=== PATIENT | female | born 1995 | race Caucasian/White ===

== ENCOUNTER → 2017-02-06 | Outpatient (CLI) | payer OTHER ==
[~2017-02-06] MED LIST: PRENTAB26 PO
== END | disposition home or self-care (01) ==
LOC: C.CPL 11:53
PROVIDERS: ATTEND Physician Assistant
DX: Z34.80 Encounter for supervision of other normal pregnancy, unspecified trimester (principal); Z82.79 Family history of other congenital malformations, deformations and chromosomal abnormalities

== ENCOUNTER 2017-05-06 23:03 | Inpatient (IN) | payer OTHER ==
[~2017-05-06] VITALS: Ht 172.7 cm; Wt 68.5 kg
[2017-05-06] MEDS ORDERED: LACTATED RINGER'S 1000ML 1,000 ML IV PRN (23:48)
[2017-05-06] MEDS ORDERED: LACTATED RINGER'S 1000ML 1,000 ML IV SCH (23:48)
[2017-05-07] MEDS ORDERED: PENICILLIN G POTASSIUM IV 3 MU in DEXTROSE 5% 100ML 100 ML IV PRN ×2
[2017-05-07] MEDS ORDERED: PENICILLIN G POTASSIUM IV 6 MU in DEXTROSE 5% 250ML 250 ML IV ONE ×2
[2017-05-07] MEDS ORDERED: BUPIVACAINE 0.25% 30 ML VIAL ONE (00:06)
[2017-05-07] MEDS ORDERED: FENTANYL CITRATE INJ 50 MCG/1 ML 2 ML VIAL ONE (00:07)
[2017-05-07] MEDS ORDERED: EpHEDrine SULFATE INJ 50 MG/ML AMP ONE (00:07)
[2017-05-07] MEDS ORDERED: FENTANYL 2MCG/ML ROPIV 1.25MG/ML 100ML BAG EPI ONE (00:08)
[2017-05-07 00:12] LABS: HEMATOCRIT 37.7 % (37-47); MEAN CELL VOLUME 90.2 fL (80-100); MEAN CORPUSCULAR HEMOGLOBIN 31.1 pg (25-34); MEAN PLATELET VOLUME 10.1 fL (7.4-10.4); PLATELET COUNT 191 K/uL (130-400); RED CELL DISTRIBUTION WIDTH CV 13.6 % (11.5-14.5); RED CELL DISTRIBUTION WIDTH SD 44.9 fL (36.4-46.3)
[2017-05-07 00:16] LABS: MEAN CORPUSCULAR HGB CONC 34.5 g/dl (32-36)
[2017-05-07] MEDS ORDERED: LACTATED RINGER'S 1000ML 500 ML IV PRN (00:58)
[2017-05-07] MEDS ORDERED: NALOXONE HCL INJ 1 MG in SODIUM CHLORIDE 0.9% 1000ML 1,000 ML IV PRN (00:58)
[2017-05-07] MEDS ORDERED: EpHEDrine SULFATE INJ 50 MG/ML AMP IV PRN (01:00)
[2017-05-07] MEDS ORDERED: NALBUPHINE HCL INJ 10 MG/ML AMP IV PRN (01:00)
[2017-05-07] MEDS ORDERED: FENTANYL 2MCG/ML ROPIV 1.25MG/ML 100ML BAG EPI PRN (01:00)
[2017-05-07] MEDS ORDERED: NALOXONE HCL INJ 0.4 MG/1 ML VIAL/CARP IV PRN (01:00)
[2017-05-07] MEDS ORDERED: DiphenhydrAMINE HCL 50 MG/ML VIAL IV PRN (01:00)
[2017-05-07 01:10] VITALS: Ht 172.7 cm; Wt 68.5 kg
[2017-05-07] MEDS ORDERED: LEVO25TA PO (02:44)
[2017-05-07] MEDS ORDERED: OXYTOCIN 30 UNITS/500ML NSS IV ONE (03:35)
[2017-05-07] MEDS ORDERED: ACETAMINOPHEN 325 MG TAB PO PRN (04:15)
[2017-05-07] MEDS ORDERED: LANOLIN OINT EXT PRN (04:15)
[2017-05-07] MEDS ORDERED: HYDROCORTISONE ACETATE 25 MG SUPP PR PRN (04:15)
[2017-05-07] MEDS ORDERED: BENZOCAINE 20% AER SPR 82.5 GM CAN EXT PRN (04:15)
[2017-05-07] MEDS ORDERED: OXYCODONE/ACETAMINOPHEN 5-325 TAB PO PRN (04:15)
[2017-05-07] MEDS ORDERED: OXYTOCIN 30 UNITS/500ML NSS IV PRN (04:15)
[2017-05-07] MEDS ORDERED: SUPERCREAM 0.870 % 15GM JAR EXT PRN (04:15)
--- NOTE | 2017-05-07 04:26 | DELIVERY SUMMARY ---
DATE OF OPERATION: 05/07/2017 TIME: 03:44 a.m. TIME OF DELIVERY OF PLACENTA: 03:58 a.m. DETAILS OF DELIVERY: The patient was found to be fully dilated and desired to push. She pushed through 2 contractions and delivered the head and the baby altogether. Baby's mouth and nose were suctioned. The cord was clamped x2 and cut, it was a 3-vessel cord. Cord blood was obtained. Vagina and perineum were checked for lacerations. There were labial lacerations on both sides and a first degree vaginal laceration. They were repaired with 3-0 Vicryl in a running locked fashion. Excellent hemostasis was achieved. Placenta was found to be in the vagina and delivered complete and intact. Uterus was explored and found to be empty. Lower segment was cleared off all clots and debris. Fundus was firm. EBL was 100 ml. Mom and baby tolerated the procedure well. At the end of the procedure, sponge, needle and instrument counts were x2. Baby was a viable female infant. Apgars 9/9. Weight is 2435. No complications happened and I was present during the whole procedure. I attest to the content of the Intraoperative Record and any orders documented therein. Any exceptions are noted below. MTDD
[2017-05-07 07:15] VITALS: BP 120/67; PULSE 79; TEMP 37
--- NOTE | 2017-05-07 07:32 | Anesthesia Procedure Note ---
Anesthesia Epidural Removal Nt Date & Time May 07, 2017 at 07:32 Vital Signs Pain Intensity: 0.0 Notes Mental Status: alert / awake / arousable, participated in evaluation Nausea / Vomiting: adequately controlled Pain: adequately controlled Airway Patency, RR, SpO2: stable & adequate BP & HR: stable & adequate Hydration State: stable & adequate Neuraxial Anesthesia: was administered Anesthetic Complications: no major complications apparent, pt satisfied with anesthetic care Epidural: removed without complications, with tip intact
[2017-05-07] MEDS: DOCUSATE SODIUM 100 MG CAP PO SCH ×2 (08:31→20:17)
[2017-05-07] MEDS: PRENATAL VITAMIN TAB PO SCH (08:31)
[2017-05-07] MEDS: FERROUS SULFATE 325 MG TAB PO SCH (08:31)
[2017-05-07 12:08] VITALS: BP 113/64; PULSE 75; TEMP 37.2
[2017-05-07 15:15] VITALS: BP 129/76; PULSE 81; TEMP 37.1
[2017-05-07 23:40] VITALS: BP 115/68; PULSE 76; TEMP 36.5; O2SAT 97
[2017-05-08] MEDS: IBUPROFEN 600 MG TAB PO PRN ×2 (00:25→23:39)
[2017-05-08 04:15] VITALS: BP 114/66; PULSE 76; TEMP 36.9; O2SAT 98
[2017-05-08] MEDS: PRENATAL VITAMIN TAB PO SCH (08:06)
[2017-05-08] MEDS: LEVOTHYROXINE 25 MCG TAB PO SCH (08:06)
[2017-05-08] MEDS: FERROUS SULFATE 325 MG TAB PO SCH (08:06)
[2017-05-08] MEDS: DOCUSATE SODIUM 100 MG CAP PO SCH ×2 (08:06→20:45)
[2017-05-08 08:24] LABS: HEMATOCRIT 34.7 % (37-47); HEMOGLOBIN 12.1 g/dL (12.0-16.0)
[2017-05-08] MEDS ORDERED: MEASLES, MUMPS & RUBELLA VIRUS VIAL SQ. ONE (09:00)
[2017-05-08] MEDS ORDERED: DIPHTHERIA/TETANUS/PERTUSSIS 0.5 ML SYR/VIAL IM. ONE (09:00)
--- NOTE | 2017-05-08 09:02 | OB/GYN Progress Note ---
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 Patient is seen and examined. She feels well, no complaints. Ambulating without dizziness Voiding without difficulty Tolerating regular diet with out N&V Bleeding is minimal No fever/ chills/ CP/ SOB/ N&V/ Leg pain Bottle feeding without problems Date Time Temp Pulse Resp B/P (MAP) Pulse Ox O2 Delivery O2 Flow Rate FiO2 05/08/17 04:15 36.9 76 16 114/66 (82) 98 Room Air 05/07/17 23:40 97 Room Air 05/07/17 23:40 36.5 76 20 115/68 (84) 97 Room Air 05/07/17 15:15 37.1 81 16 129/76 (93) Room Air 05/07/17 15:15 Room Air 05/07/17 12:08 37.2 75 20 113/64 (80) Room Air Last 24 Hours Test 05/08/17 07:40 Hemoglobin 12.1 g/dL Hematocrit 34.7 % PE: General: Alert, orientedx3, NAD Abd: soft, NT, fundus firm, below Umbilicus Perineum intact, Lochia rubra minimal Ext; NT, no edema AP: 21 yo s/p , ppd# 1 VSS Afebrile doing well Continue routine care All questions were answered D/C home tomorrow
[2017-05-08 09:10] VITALS: BP 119/76; PULSE 69; TEMP 36.5
[2017-05-08 16:18] VITALS: BP 117/70; PULSE 69; TEMP 36.7; O2SAT 98
[2017-05-08] MEDS ORDERED: BISACODYL 5 MG TABEC PO SCH (20:00)
[2017-05-08 23:30] VITALS: BP 121/74; PULSE 73; TEMP 37; O2SAT 96; O2SAT 99
[2017-05-09] MEDS ORDERED: BISACODYL 10 MG SUPP PR PRN (07:00)
[2017-05-09] MEDS: LEVOTHYROXINE 25 MCG TAB PO SCH (07:43)
[2017-05-09 07:47] LABS: HEMATOCRIT 36.6 % (37-47); HEMOGLOBIN 12.4 g/dL (12.0-16.0); MEAN CELL VOLUME 90.6 fL (80-100); MEAN CORPUSCULAR HEMOGLOBIN 30.7 pg (25-34); MEAN CORPUSCULAR HGB CONC 33.9 g/dl (32-36); MEAN PLATELET VOLUME 9.7 fL (7.4-10.4); PLATELET COUNT 200 K/uL (130-400); RED CELL DISTRIBUTION WIDTH CV 13.6 % (11.5-14.5); RED CELL DISTRIBUTION WIDTH SD 44.6 fL (36.4-46.3); WHITE BLOOD COUNT 11.22 K/uL (4.8-10.8)
[2017-05-09 07:49] VITALS: BP 120/78; PULSE 62; TEMP 36.8; O2SAT 99
[2017-05-09] MEDS: PRENATAL VITAMIN TAB PO SCH (08:53)
[2017-05-09] MEDS: FERROUS SULFATE 325 MG TAB PO SCH (08:53)
[2017-05-09] MEDS: DOCUSATE SODIUM 100 MG CAP PO SCH (08:53)
[2017-05-09] MEDS ORDERED: MTR600X PO (08:57)
--- NOTE | 2017-05-09 08:58 | Discharge Instructions ---
Discharge Instructions Date of Service May 09, 2017. Admission Reason for Admission: LABOR Discharge Discharge Diagnosis / Problem: Vaginal Delivery Discharge Goals Goal(s): Routine recovery after delivery Medications Continue Dispensed Medications: supercream, dermaplast, tucks, lansinoh Activity Recommendations Activity Limitations: per Instructions/Follow-up section . Instructions / Follow-Up Instructions / Follow-Up ACTIVITY RECOMMENDATIONS: * Gradual return to full activity over the next 2-3 weeks. * No lifting - nothing heavier than baby over the next 2-3 weeks. * Do not engage in vigorous exercise, sexual activity or sports until cleared by your physician. * Do not drive or operate any motorized equipment until cleared by your physician. * You may shower/bathe daily. BREAST CARE: If you are not breast feeding: * Wear a supportive bra 24 hours a day for one to two weeks. * Avoid stimulating your breasts and nipples as much as possible during the first few weeks after delivery. * When taking a shower, have the warm water hit your back, not breasts. * When your breasts feel full, apply ice packs. Usually three to four times a day helps ease the discomfort. * Take a mild pain medication (Tylenol/Motrin) when you are uncomfortable. If breast feeding: * Use breast milk to lubricate nipples. Lansinoh cream may be used for sore nipples. You do not need to remove cream prior to breast feeding. If using a different brand of cream, check the label for directions regarding removal of cream prior to nursing. * Wear a supportive bra. * If having problems with breasts or breast feeding, call a hospice consultant or your health care provider. EPISIOTOMY CARE: After delivery, if you have an episiotomy (stitches), the following steps will ease discomfort and aid healing. * For the first 24 hours after delivery, place ice packs next to your episiotomy to help reduce swelling. * After the first 24 hour-period, sitz baths, either portable or in the tub, are suggested. A shower with a shower arm sprayed over the episiotomy may be comforting. * Winnie care should be done after each voiding and bowel movement. Squirt warm water from a plastic bottle over the perineum (region of the body between the anus and urinary opening) and pat dry. * Use Dermoplast to ease discomfort. Shake container. [place] directly over the episiotomy. * Place a Tucks on a clean sanitary pad next to your episiotomy. OVER THE COUNTER MEDICATION: * For discomfort or pain, you may use Acetaminophen (Tylenol), Ibuprofen (Advil ), or Naproxen (Aleve) following the package directions. * For constipation you may use Colace following the package directions. SPECIAL CARE INSTRUCTIONS: When you are discharged from the hospital, it is important for you to follow the instructions listed below: * During the first week at home, you should be able to care for yourself and your baby. In addition, the usual light household activities are encouraged. * Limit your activities to the way you feel. Do not try to clean the house or move furniture. Be sensible. * If you actively engage in sports and have done so up until the time of your delivery, you may resume these activities as soon as you feel able. This may take up to one month or even longer. Use good judgment. * Continue to take your vitamins for at least six weeks after the of your baby. * Your diet need not be limited unless you were on a special diet before your delivery. Breast-feeding mothers need around 2500 calories per day and at least 64-80 ounces of fluid per day (8 to 10 glasses). * You should eat foods from the four major food groups. Crash diets or fad diets are to be avoided. Eating lean meats, fresh fruits and vegetables, low-fat dairy products, high fiber foods and a regular exercise program, will help you get back to your pre- weight without putting your health at risk. * Constipation is sometimes a problem after delivery. Take a mild laxative as needed. If breast feeding, Milk of Magnesia is acceptable to use. You may use a suppository or Fleets enema if no episiotomy. * A daily shower or tub bath is suggested. Be sure to thoroughly and gently dry the perineum. * A bloody vaginal discharge will usually continue until around four weeks post . A small amount of bleeding may continue for as long as six weeks. Vaginal discharge changes from the bright red bleeding after delivery to pink then brownish and finally yellowish-pink before becoming white and disappearing. * Bleeding may increase with activity. Your first period may come in 4-8 weeks. If you are breast feeding, your period may be delayed even longer. * [place] (sex) can begin whenever both you and your partner feel comfortable and do not have any form of genital infection. It is recommended that you wait until after your return appointment and discuss with your physician. If you have questions, please talk to your health care practitioner. A condom should be used to prevent infection and . * Foreplay, gentle intercourse and lubrication is very important the first several times to prevent pain. A water-based lubricant such as K-Y jelly or Astroglide may be used. * Tampons may be used six weeks after delivery. * Douching should be avoided for 6 weeks after delivery. * If you have RH negative blood and your baby is RH positive, you will receive RHOGAM by injection prior to discharge. The nurse will give you a card to keep with you that has the date and place that you received RHOGAM after delivery. * During your care, you had a Rubella screen done to check for the presence of rubella antibodies in your blood. If your test was negative, you will receive a Rubella vaccine prior to discharge. This vaccine may cause a fever, soreness at the injection site and flu-like symptoms. If these symptoms persist, notify your health care practitioner. is not advised for three months after a Rubella vaccine. There is a higher chance of having a baby with defects if conceived within three months of getting the vaccine. * If you were discharged 24 hours from delivery or before 48 hours: Visiting nurses will come to your home 48 hours after discharge to assess you and your baby. The visiting nurse will meet with you while you are in the hospital to arrange a time and get directions to your home. * Verbalizes understanding of car seat law as reviewed with patient nursing. * Car Seat hand-out given and reviewed with patient by nursing. * Shaken baby information reviewed with patient by nursing. Call you doctor if: * Heavy bleeding (saturating several pads an hour) or passing clots the size of your fist. * A fever >101 degrees F (38.3 degrees C) on two occasions four hours apart and/or chills. * Unusual pain in the pelvic or vaginal areas. * "Baby Blues" lasting longer than two weeks. If you have any questions or concerns, call your health care practitioner at . FOLLOW-UP VISIT: * Please call the office at to schedule a 6 week examination. It is important you keep this appointment. * It is important for you to make arrangements for either yearly or twice yearly check-ups thereafter. Current Hospital Diet Patient's current hospital diet: Regular OB Diet Discharge Diet Recommended Diet: Regular OB Diet Pending Studies Studies pending at discharge: no Medical Emergencies . Who to Call and When: Medical Emergencies: If at any time you feel your situation is an emergency, please call 911 immediately. . Non-Emergent Contact Non-Emergency issues call your: Primary Care Provider, Receiving Manager . . "Provider Documentation" section prepared by Max Conklin. .
--- NOTE | 2017-05-09 08:59 | OB/GYN Progress Note ---
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 Subjective conversation w/ patient, physical exam Ambulation: ambulating normally Voiding: no voiding problems Passing Gas: Yes Diet Tolerance: Regular Diet Lochia: Small Feeding Type: Bottle Feeding Pain: 2/10 Notes: Doing well, no concerns. Would like to go home today. Objective Vital Signs Date Time Temp Pulse Resp B/P (MAP) Pulse Ox O2 Delivery O2 Flow Rate FiO2 05/09/17 07:49 36.8 62 18 120/78 (92) 99 Room Air 05/08/17 23:30 37.0 73 18 121/74 (90) 99 Room Air 05/08/17 23:30 96 Room Air 05/08/17 16:18 98 Room Air 05/08/17 16:18 36.7 69 20 117/70 (86) 98 Room Air 05/08/17 09:13 Room Air 05/08/17 09:10 36.5 69 18 119/76 (90) Physical Exam General Appearance: WELL-APPEARING Respiratory/Chest: chest non-tender, lungs clear Cardiovascular: regular rate, rhythm Abdomen: normal bowel sounds, soft Fundus: Firm Extremities: normal range of motion, non-tender, no calf tenderness Laboratory Results Last 24 Hours Test 05/09/17 07:24 White Blood Count 11.22 K/uL Red Blood Count 4.04 M/uL Hemoglobin 12.4 g/dL Hematocrit 36.6 % Mean Corpuscular Volume 90.6 fL Mean Corpuscular Hemoglobin 30.7 pg Mean Corpuscular Hemoglobin Concent 33.9 g/dl RDW Standard Deviation 44.6 fL RDW Coefficient of Variation 13.6 % Platelet Count 200 K/uL Mean Platelet Volume 9.7 fL Assessment and Plan Post- Day Number: 2 Continue Routine Care: -D/C home today -F/U in 6 weeks.
[2017-05-09 11:30] VITALS: BP_DIAS 78; PULSE 62; TEMP 36.8
== END 2017-05-09 11:30 | disposition home or self-care (01) | DRG 775 ==
LOC: C.OPB 23:03 → C.LD 23:03 → C.OPB 23:50 → C.LD 23:50 → C.OBG 05-07 07:18
PROVIDERS: ADMIT Obstetrics & Gynecology; ATTEND Obstetrics & Gynecology
PROC: 10E0XZZ Delivery of Products of Conception, External Approach (ICD-10-PCS; principal; 2017-05-07)
PROC: 0HQ9XZZ Repair Perineum Skin, External Approach (ICD-10-PCS; principal; 2017-05-07)
DX: O99.334 Smoking (tobacco) complicating childbirth (principal); O70.0 First degree perineal laceration during delivery; O09.33 Supervision of pregnancy with insufficient antenatal care, third trimester; Z3A.38 38 weeks gestation of pregnancy; Z37.0 Single live birth; F17.200 Nicotine dependence, unspecified, uncomplicated

== ENCOUNTER 2020-02-04 07:33 | Inpatient (IN) ==
[2020-02-04] MEDS ORDERED: OXYTOCIN 30 UNITS/500 ML BAG IV PRN ×2 (07:38→11:39)
--- NOTE | 2020-02-04 07:47 | Obstetrical Progress Note ---
Date of Service February 04, 2020 Subjective Admit Note 24 F P2002 at 39 weeks admitted to L&D in active labor. FHT Cat 1. Covid status is not known. GBS is negative. Cervix is 5/90/- 1/vertex/anterior/intact. Will admit in labor and anticipate normal delivery. Covid-19 testing is pending.
[2020-02-04] MEDS: LACTATED RINGER'S 1,000 ML IV PRN ×2 (08:00→11:05)
[2020-02-04 08:11] LABS: Hematocrit (blood only) 36.1 % (37-47); Mean Corpuscular Hemoglobin 31.4 pg (25-34); Mean Corpuscular Hgb Conc 33.2 g/dL (32-36); Mean Corpuscular Volume 94.5 fL (80-100); Mean Platelet Volume 11.4 fL (7.4-10.4); Platelet Count 136 K/uL (130-400); RDW Coefficient of Variation 13.5 % (11.5-14.5); RDW Standard Deviation 46.7 fL (36.4-46.3); Red Blood Count 3.82 M/uL (4.2-5.4); White Blood Count 11.89 K/uL (4.8-10.8)
[2020-02-04] MEDS ORDERED: BUPIVACAINE 0.25% 30 ML VIAL ONE (08:36)
[2020-02-04] MEDS ORDERED: ePHEDrine sulfate 50 MG/ML AMP ONE (08:36)
[2020-02-04] MEDS ORDERED: SODIUM CHLORIDE 0.9% INJ 10 ML VIAL ONE (08:36)
[2020-02-04] MEDS ORDERED: fentaNYL 2MCG/ML ROPIVACAINE 1.25MG/ML 100 ML BAG EPI ONE (08:37)
[2020-02-04] MEDS ORDERED: fentaNYL citrate 100 MCG/2 ML VIAL ONE (08:37)
--- NOTE | 2020-02-04 08:37 | History & Physical Report ---
Date of Service February 04, 2020 Assessment & Plan (1) Active labor at term: 24 yo at 38.5 wks, in active labor VSS afebrile GBS neg FHR reassuring Plan to admit, Coronavirus testing, epidural for pain Anticipate Admission and Anticipated Discharge Date Admission Date: February 04, 2020 History of Present Illness Primary Care Provider: Alice Marc MD Patient is a 24 yo at 38.5 wks, admitted by Dr Vazquez for active labor ctxs started last night and got more regular at 5 am No LOF/VB +FM Her has been complicated by 1) Hypothyroidism: TSH 5, her dose was increased to 75 mcg/day 2) Abnormal Glucola, has not completed 3 hour OGTT 3) RPR+, FTS-Abs negative Allergies Allergy/AdvReac Type Severity Reaction Status Date / Time No Known Allergies Allergy Unverified 10/05/19 10:39 Home Medications Medication Instructions Recorded Confirmed Type levothyroxine 75 mcg tablet 25 mcg PO DAILY tab 10/05/19 02/04/20 History ferrous sulfate 1 mg PO DAILY 01/17/20 02/04/20 History vit-ferrous sulfat-FA 1 tab PO DAILY 01/17/20 02/04/20 History [] Patient History Surgical History No significant past surgical history Family History Aunt Breast cancer Denies family history of Ovarian cancer Prostate cancer Myocardial infarction Colorectal cancer Social History Smoking Status: Current every day smoker Tobacco Type: Cigarettes Cigarettes Per Day: 4; Second Hand Exposure: Yes; Hx Alcohol Use: No Hx Substance Use: No Preferred Language: Amharic Communication Ability: Effective Visual Impairment: No Limitations Hearing Ability: Normal Beliefs That Will Affect Care: None marital status: Single Current Living Situation: Significant Other current occupational status: unemployed How many Children do You have: 2 Feels Safe at Home: Yes caffeine: Yes during the past year weight has: remained stable Dental Care, Regularly: No Physical Activity Frequency: 3-4 Times per Week Seatbelt Use: always Sunscreen Use: Yes Assistive Devices: None OB History 2 FT [employer] History Denies h/o STD's, no HSV H/O Chlamydia in 2013 in her chart, cx was negative at NOB visit Review of Systems All systems reviewed & are unremarkable except as noted in HPI & below Physical Exam Constitutional: WD/WN, vitals as above well developed and + acute distress (with ctxs) Genitourinary: OB Exam Monitor Tracing: + category I Code Status & VTE Plan VTE Prophylaxis Plan VTE Prophylaxis will be ordered: No
--- NOTE | 2020-02-04 08:45 | Obstetrical Progress Note ---
Date of Service February 04, 2020 Assessment & Plan Admission and Anticipated Discharge Date Admission Date: February 04, 2020 Subjective Bed side US: Sukh, FHR 140's
--- NOTE | 2020-02-04 08:56 | Anesthesiology Consultation ---
Date of Service February 04, 2020 Assessment & Plan Chart Review Chart Review: Acceptable Risk for Surgery, Patient NOT seen in Pre Admission Testing and Acceptable Risk for Labor Epidural Consults Requested none ASA ASA2 Proposed Anesthesia Anesthesia Type: Labor Epidural and CSE Risk / Benefits Reviewed With: PT / POA / Parent / Guardian, Accepts Plan and Informed Consent Obtained Additional Comments: covid test negative History Height/Weight Height: 5 ft 8 in Weight: 69.4 kg Allergies Allergy/AdvReac Type Severity Reaction Status Date / Time No Known Allergies Allergy Unverified 10/05/19 10:39 Medications Home Medications Medication Instructions Recorded Confirmed Last Taken levothyroxine 75 mcg tablet 25 mcg PO DAILY tab 10/05/19 02/04/20 02/03/20 09:00 ferrous sulfate 1 mg PO DAILY 01/17/20 02/04/20 01/17/20 vit-ferrous sulfat-FA 1 tab PO DAILY 01/17/20 02/04/20 02/04/20 [] NPO Date Last Intake of Fluids: 02/04/20 Time Last Intake of Fluids: 06:30 Date Last Intake of Solids: 02/03/20 Time Last Intake of Solids: 21:00 Exercise / Class Metabolic Activity II 4-5 Yardwork/Stairs/Walk up hill Past Family History Family History Aunt Breast cancer Denies family history of Ovarian cancer Prostate cancer Myocardial infarction Colorectal cancer Past Surgical History Surgical History No significant past surgical history Past Anesthesia History No Hx of Anesthesia Complications and No Family Hx of Anesthesia Complications History of PONV No Hx of PONV and No Hx of Motion Sickness Social History Smoking Status: Current every day smoker tobacco type: cigarettes Smoking cigarettes per day: 4 Hx Alcohol Use: No Hx Substance Use: No Physical Exam Constitutional average body habitus; not obese ENMT Mouth: + dentition abnormality, + dental caries and + poor dentition Thyromental Distance: > or= 3.5 Finger Breadths Mallampati Class: II Neck normal visual inspection and trachea midline; neck extension not limited Respiratory normal respiratory effort Auscultation: lungs clear to auscultation bilaterally Cardiovascular Rate/Rhythm: regular rate and regular rhythm Heart Sounds: no murmur Vessels: no carotid bruit Musculoskeletal Spine: lumbar spine normal to inspection; normal cervical ROM Neurologic moves all extremities Motor/Sensory: no sensory deficit Psychiatric Orientation: alert and oriented x 3 Testing Laboratory Results 02/04/20 07:52
[2020-02-04] MEDS ORDERED: ePHEDrine sulfate 50 MG/ML AMP IV PRN (09:22)
[2020-02-04] MEDS ORDERED: NALOXONE HCL 1 MG in SODIUM CHLORIDE 0.9% 1000ML 1,000 ML IV PRN (09:22)
[2020-02-04] MEDS ORDERED: diphenhydrAMINE 50 MG/ML VIAL IV PRN (09:22)
[2020-02-04] MEDS ORDERED: NALOXONE HCL 0.4 MG/1 ML VIAL/CARP IV PRN (09:22)
[2020-02-04] MEDS ORDERED: fentaNYL 2MCG/ML ROPIVACAINE 1.25MG/ML 100 ML BAG EPI PRN (09:22)
[2020-02-04] MEDS ORDERED: PROMETHAZINE HCL 25 MG in SODIUM CHLORIDE 0.9% 50 ML IV PRN (09:22)
[2020-02-04] MEDS ORDERED: ONDANSETRON INJ 2 MG/ML 2 ML VIAL IV PRN (09:22)
[2020-02-04 09:25] LABS: Alanine Aminotransferase 10 U/L (12-78); Albumin Level 2.6 gm/dl (3.4-5.0); Aspartate Aminotransferase 12 U/L (15-37); BUN Creatinine Ratio 9.6 (10-20); Blood Urea Nitrogen 5 mg/dl (7-18); Calcium 8.6 mg/dl (8.5-10.1); Carbon Dioxide 24 mmol/L (21-32); Chloride 110 mmol/L (98-107); Creatinine Clr Calc Pharmacy 162.3 ml/min; Est GFR (African American) > 150.0; Glucose 80 mg/dl (70-99); Potassium 4.1 mmol/L (3.5-5.1); Sodium 139 mmol/L (136-145)
[2020-02-04 09:28] LABS: Albumin Globulin Ratio 0.7 (0.9-2); Alkaline Phosphatase 280 U/L (45-117); Bilirubin,Total 0.3 mg/dl (0.2-1); Globulin 3.5 gm/dl (2.5-4.0); Total Protein 6.1 gm/dl (6.4-8.2)
--- NOTE | 2020-02-04 10:01 | Obstetrical Progress Note ---
Date of Service February 04, 2020 Assessment & Plan Admission and Anticipated Discharge Date Admission Date: February 04, 2020 Subjective Patient is reevaluated She feels much better, received epidural for pain VE; 5-6 cm/ 70%/ -1, AROM'ed, clear fluid FHR categ I [place] ctxs q 2-3 min Continue to monitor Anticipate Results & Data ([facility]) Vital Signs (Past 12 Hours) Vital Signs Pulse BP Pulse Ox 02/04/20 09:56 82 98 02/04/20 09:51 67 99 02/04/20 09:46 62 96 02/04/20 09:41 67 98 02/04/20 09:39 70 111/63 02/04/20 09:36 78 111/60 99 02/04/20 09:33 77 114/62 02/04/20 09:31 74 97 02/04/20 09:30 76 124/70 02/04/20 09:27 71 105/62 02/04/20 09:26 67 96 02/04/20 09:24 98 H 103/62 02/04/20 09:21 89 108/63 97 02/04/20 09:18 75 105/59 L 02/04/20 09:16 116 H 95/54 L 98 02/04/20 09:12 93 H 123/71 02/04/20 09:11 80 96 02/04/20 09:06 75 95 02/04/20 09:01 95 H 97 02/04/20 09:00 96 H 148/68 H 02/04/20 08:56 81 99 02/04/20 08:51 78 97
[2020-02-04] MEDS ORDERED: MINERAL OIL 30 ML UDC ONE (11:13)
[2020-02-04] MEDS ORDERED: BENZOCAINE 20% AER SPR 82.5 GM CAN EXT PRN (11:39)
[2020-02-04] MEDS ORDERED: bisacodyL 10 MG SUPP PR PRN (11:39)
[2020-02-04] MEDS ORDERED: ACETAMINOPHEN 325 MG TAB PO PRN (11:39)
[2020-02-04] MEDS ORDERED: DIPHTHERIA/TETANUS/PERTUSSIS 0.5 ML SYR/VIAL IM ONE (11:39)
[2020-02-04] MEDS ORDERED: IBUPROFEN 600 MG TAB PO PRN (11:39)
[2020-02-04] MEDS ORDERED: HYDROCORTISONE ACETATE 25 MG SUPP PR PRN (11:39)
[2020-02-04] MEDS ORDERED: SUPERCREAM 0.870% 15 GM JAR EXT PRN (11:39)
[2020-02-04] MEDS ORDERED: miSOPROStoL 200 MCG TAB PR ONE (11:39)
[2020-02-04] MEDS ORDERED: MEASLES, MUMPS & RUBELLA VIRUS VIAL SQ ONE (11:39)
--- NOTE | 2020-02-04 12:02 | Delivery Summary ---
DATE OF OPERATION: 02/04/2020 TIME OF DELIVERY OF BABY: 11:24 a.m. DETAILS OF DELIVERY: The patient was found to be fully dilated and desired to push. She pushed through 3 contractions and delivered the head without difficulty. There was a nuchal cord around the neck x2 and those were reduced. Shoulders were delivered with minimal traction. Baby was handed off to the mother where mouth and nose were suctioned. Cord was clamped x2 and cut. Baby was handed off to the waiting pediatric team and the perineum and vagina were checked for lacerations. There were only small first-degree labial laceration on both sites. Those were repaired with 3-0 Vicryl on the SH needle with [id number] stitches and excellent hemostasis was achieved. Rest of the vagina and perineum were intact. Placenta was found to be in the vagina, delivered spontaneous as intact and complete. Uterus was explored, found to be empty. Fundus was firm. EBL was 200 mL. Mom and baby tolerated the procedure well. Sponge, lap, needle and instrument counts were correct x2. Baby was a viable male infant, Apgars 8/8. No complications happened and I was present during whole procedure. I attest to the content of the Intraoperative Record and any orders documented therein. Any exceptions are noted below. TRUPTID
--- NOTE | 2020-02-04 12:25 | Anesthesia Procedure Note ---
Date of Service February 04, 2020 Anesthesia Post Epidural Note Vital Signs Vital Signs: Temp Pulse Resp BP Pulse Ox 36.8 C 91 H 18 129/76 95 02/04/20 07:38 02/04/20 12:15 02/04/20 10:40 02/04/20 12:15 02/04/20 11:26 Notes Mental Status: alert / awake / arousable Nausea / Vomiting: adequately controlled Pain: adequately controlled Airway Patency, RR, SpO2: stable & adequate BP & HR: stable & adequate Hydration State: stable & adequate Neuraxial Anesthesia: was administered and sensory block is resolving Anesthetic Complications: no major complications apparent Epidural: Removed without complications and With tip intact
[2020-02-04] MEDS ORDERED: miSOPROStoL 200 MCG TAB ONE (16:00)
[2020-02-04] MEDS: DOCUSATE SODIUM 100 MG CAP PO SCH (21:36)
[2020-02-05 06:54] LABS: Hematocrit (blood only) 32.9 % (37-47); Hemoglobin 11.1 g/dL (12.0-16.0); Mean Corpuscular Hemoglobin 31.5 pg (25-34); Mean Corpuscular Hgb Conc 33.7 g/dL (32-36); Mean Corpuscular Volume 93.5 fL (80-100); Mean Platelet Volume 11.5 fL (7.4-10.4); Platelet Count 116 K/uL (130-400); RDW Coefficient of Variation 13.4 % (11.5-14.5); RDW Standard Deviation 46.2 fL (36.4-46.3); Red Blood Count 3.52 M/uL (4.2-5.4)
[2020-02-05] MEDS ORDERED: FERROUS SULFATE 325 MG TAB PO SCH (08:00)
[2020-02-05] MEDS ORDERED: PRENATAL VITAMIN 1 TAB PO SCH (08:00)
--- NOTE | 2020-02-05 08:43 | Obstetrical Progress Note ---
Date of Service February 05, 2020 Assessment & Plan Admission and Anticipated Discharge Date Admission Date: February 04, 2020 Subjective Patient is seen and examined. She feels well, no complaints. Desires d/c today Ambulating without dizziness Voiding without difficulty Tolerating regular diet with out N&V Bleeding is minimal No fever/ chills/ CP/ SOB/ N&V/ Leg pain Bottle feeding without problems Vital Signs Temp Pulse Pulse Resp BP BP Pulse Ox 02/05/20 03:10 36.5 C 76 16 115/65 98 02/04/20 23:10 36.7 C 63 18 121/78 98 02/04/20 19:15 37.0 C 89 18 135/71 97 02/04/20 15:15 37.0 C 78 18 131/85 97 02/04/20 14:41 36.9 C 18 02/04/20 14:30 67 122/63 02/04/20 14:15 61 122/64 02/04/20 13:45 79 121/60 02/04/20 13:30 82 132/71 02/04/20 13:15 82 18 125/58 L 02/04/20 12:46 81 127/60 02/04/20 12:30 74 18 114/70 02/04/20 12:15 91 H 18 129/76 02/04/20 12:00 82 18 127/76 02/04/20 11:45 82 18 125/72 02/04/20 11:30 74 123/58 L 02/04/20 11:26 79 95 02/04/20 11:24 85 18 88 L 02/04/20 11:21 85 98 02/04/20 11:18 98 H 94 02/04/20 11:16 77 97 02/04/20 11:15 87 115/67 02/04/20 11:11 79 98 02/04/20 11:10 18 02/04/20 11:06 74 97 02/04/20 11:01 76 98 02/04/20 11:00 73 118/71 02/04/20 10:56 82 98 02/04/20 10:51 67 98 02/04/20 10:46 73 108/64 98 02/04/20 10:41 80 98 02/04/20 10:40 18 02/04/20 10:36 66 99 02/04/20 10:31 68 97 02/04/20 10:30 75 113/66 02/04/20 10:26 65 96 02/04/20 10:21 70 97 02/04/20 10:16 69 113/69 97 02/04/20 10:11 73 99 02/04/20 10:10 18 02/04/20 10:06 77 99 02/04/20 10:01 61 103/60 99 02/04/20 09:56 82 18 98 02/04/20 09:51 67 99 02/04/20 09:46 62 96 02/04/20 09:41 67 98 02/04/20 09:40 18 02/04/20 09:39 70 111/63 02/04/20 09:36 78 111/60 99 02/04/20 09:33 77 114/62 02/04/20 09:31 74 97 02/04/20 09:30 76 124/70 02/04/20 09:27 71 105/62 02/04/20 09:26 67 96 02/04/20 09:24 98 H 103/62 02/04/20 09:21 89 108/63 97 02/04/20 09:18 75 105/59 L 02/04/20 09:16 116 H 95/54 L 98 02/04/20 09:12 93 H 123/71 02/04/20 09:11 80 96 02/04/20 09:10 18 02/04/20 09:06 75 95 02/04/20 09:01 95 H 97 02/04/20 09:00 96 H 148/68 H 02/04/20 08:56 81 99 02/04/20 08:51 78 97 Lab Results 02/04/20 02/04/20 02/04/20 Range/Units 07:50 07:52 08:48 WBC 11.89 H (4.8-10.8) K/uL RBC 3.82 L (4.2-5.4) M/uL Hgb 12.0 (12.0-16.0) g/dL Hct 36.1 L (37-47) % MCV 94.5 (80-100) fL MCH 31.4 (25-34) pg MCHC 33.2 (32-36) g/dL RDW Std Deviation 46.7 H (36.4-46.3) fL RDW Coeff of Josué 13.5 (11.5-14.5) % Plt Count 136 (130-400) K/uL MPV 11.4 H (7.4-10.4) fL Sodium 139 (136-145) mmol/L Potassium 4.1 (3.5-5.1) mmol/L Chloride 110 H (98-107) mmol/L Carbon Dioxide 24 (21-32) mmol/L Anion Gap 6.0 (3-11) BUN 5 L (7-18) mg/dl Creatinine 0.53 L (0.6-1.2) mg/dl Est Cr Clr Drug Dosing 162.3 ml/min Est GFR ( Amer) > 150.0 Est GFR (Non-Af Amer) 131.0 BUN/Creatinine Ratio 9.6 L (10-20) Glucose 80 (70-99) mg/dl Calcium 8.6 (8.5-10.1) mg/dl Total Bilirubin 0.3 (0.2-1) mg/dl AST 12 L (15-37) U/L ALT 10 L (12-78) U/L Alkaline Phosphatase 280 H (45-117) U/L Total Protein 6.1 L (6.4-8.2) gm/dl Albumin 2.6 L (3.4-5.0) gm/dl Globulin 3.5 (2.5-4.0) gm/dl Albumin/Globulin Ratio 0.7 L (0.9-2) SARS-CoV-2, RNA, NAAT NEGATIVE (NEGATIVE) 02/05/20 Range/Units 06:34 WBC 13.00 H (4.8-10.8) K/uL RBC 3.52 L (4.2-5.4) M/uL Hgb 11.1 L (12.0-16.0) g/dL Hct 32.9 L (37-47) % MCV 93.5 (80-100) fL MCH 31.5 (25-34) pg MCHC 33.7 (32-36) g/dL RDW Std Deviation 46.2 (36.4-46.3) fL RDW Coeff of Josué 13.4 (11.5-14.5) % Plt Count 116 L (130-400) K/uL MPV 11.5 H (7.4-10.4) fL Sodium (136-145) mmol/L Potassium (3.5-5.1) mmol/L Chloride (98-107) mmol/L Carbon Dioxide (21-32) mmol/L Anion Gap (3-11) BUN (7-18) mg/dl Creatinine (0.6-1.2) mg/dl Est Cr Clr Drug Dosing ml/min Est GFR ( Amer) Est GFR (Non-Af Amer) BUN/Creatinine Ratio (10-20) Glucose (70-99) mg/dl Calcium (8.5-10.1) mg/dl Total Bilirubin (0.2-1) mg/dl AST (15-37) U/L ALT (12-78) U/L Alkaline Phosphatase (45-117) U/L Total Protein (6.4-8.2) gm/dl Albumin (3.4-5.0) gm/dl Globulin (2.5-4.0) gm/dl Albumin/Globulin Ratio (0.9-2) SARS-CoV-2, RNA, NAAT (NEGATIVE) PE: General: Alert, orientedx3, NAD Abd: soft, NT, fundus firm, below Umbilicus Perineum intact, Lochia rubra minimal Ext; NT, no edema AP: 24 yo s/p , ppd# 1 VSS Afebrile doing well Continue routine care All questions were answered Discussed when to call D/C home , f/u in office Results & Data ([facility]) Vital Signs (Past 12 Hours) Vital Signs Temp Pulse Resp BP Pulse Ox 02/05/20 03:10 36.5 C 76 16 115/65 98 02/04/20 23:10 36.7 C 63 18 121/78 98
[2020-02-05] MEDS: DOCUSATE SODIUM 100 MG CAP PO SCH (09:43)
[2020-02-05] MEDS ORDERED: bisacodyL 5 MG TABEC PO SCH (20:00)
--- NOTE | 2020-02-07 14:36 | Coding Query ---
CODING QUERY To promote full compliance with coding requirements relating to patient care, provider participation is requested in all cases of sander machine uncertainty. Please assist us with the question(s) below: Coding Question(s): The H&P documents the patient was admitted at 38.5 weeks gestation, however, the 02/04/20 Obstetrical Progress Note documents gestation at 39 weeks. Please specify below, due to conflicting documentation, to clarify the weeks of gestation on 02/04/20. ( x ) 38.5 weeks ( ) 39 weeks ( ) Other: Please Specify Physician's Response(s): Thank you Lisset Rachel Principal Diagnosis: "that condition established after study, to be chiefly responsible for occasioning the admission of the patient to the hospital for care." Co-Existing Principal Diagnosis: "when two or more diagnoses equally meet the criteria for principal diagnosis as determined by the circumstances of admission, diagnostic work up, and/or therapy provided, and the Alphabetic Index, Tabular List, or another coding guideline does not provide sequencing direction, any one of the diagnoses may be sequenced first." "When the physician has documented what appears to be a current diagnosis in the body of the record, but has not included the diagnosis in the final diagnostic statement, the physician should be asked whether the diagnosis should be added." (Source [facility] 2 QTR90. p3-4) ELIGIO
== END 2020-02-05 13:25 | disposition home or self-care (01) | DRG 807 ==
LOC: OPB 07:33 → 4S1 07:37 → 4S2 14:55

== ENCOUNTER 2023-06-14 04:44 | Inpatient (IN) ==
[2023-06-14] MEDS ORDERED: ACETAMINOPHEN 500 MG TAB PO PRN (06:00)
[2023-06-14] MEDS ORDERED: OXYTOCIN 30 UNITS/NSS 30 UNITS/500 ML BAG IV PRN ×3 (06:00→11:59)
[2023-06-14] MEDS ORDERED: LIDOCAINE 1% LOCAL 20 ML VIAL INFIL PRN (06:00)
[2023-06-14] MEDS ORDERED: CALCIUM CARBONATE 500 MG CHEWABLE TAB PO PRN (06:00)
--- NOTE | 2023-06-14 06:18 | History & Physical Report ---
Date of Service June 14, 2023 Assessment & Plan (1) Post-term , 40-42 weeks of gestation: Plan: 27-year-old -0-1-3 at 40 weeks and 6 days of gestation presenting today with regular contractions and current cervical change, Vital signs stable afebrile, GBS negative, heart rate reassuring, Plan to admit, monitor, labs, IV fluids and epidural for pain per patient request, All questions were answered. (2) Uterine contractions at greater than 20 weeks of gestation: (3) Tobacco smoking affecting : (4) Hypothyroidism affecting in third trimester: Admission and Anticipated Discharge Date Admission Date: June 14, 2023 History of Present Illness Chief Complaint: Contractions Primary Care Provider: Alice Marc MD Patient is a 27-year-old -0-1-3 at 40 weeks and 6 days of gestation who woke up with contractions around 2 AM this morning. They have been getting more closer and painful over time. She is requesting epidural for pain. Patient denies leakage of fluid or vaginal bleeding. She reports good movements. Her has been uncomplicated except hypothyroidism for which she is on levothyroxine and smoker. She smokes 20 cigarettes/day. She denies any other medical problems nor surgeries. GBS negative. Allergies Allergy/AdvReac Type Severity Reaction Status Date / Time prednisone Allergy Severe Hives Verified 11/15/21 11:50 PENICILLIN AdvReac Mild HIVES Uncoded 11/15/21 11:50 Home Medications Medication Instructions Recorded Confirmed Type ferrous sulfate 325 mg (65 mg 325 mg PO DAILY 06/14/23 06/14/23 History iron) tablet (iron) levothyroxine 25 mcg capsule 125 mcg PO DAILY 06/14/23 06/14/23 History Patient History Medical History History of wrist fracture Active labor at term Surgical History No significant past surgical history Family History Aunt Breast cancer Denies family history of Ovarian cancer Prostate cancer Myocardial infarction Colorectal cancer Social History Smoking Status: Current every day smoker Tobacco Type: Cigarettes Cigarettes Per Day: 20; Second Hand Exposure: No; Do You Dip or Chew Tobacco: No; Hx Alcohol Use: No Hx Substance Use: No Preferred Language: Wolof Communication Ability: Effective Visual Impairment: No Limitations Hearing Ability: Normal Hand Roller Engraver Required: No Beliefs That Will Affect Care: None marital status: Single Current Living Situation: Family and Significant Other Current Living Situation Comment: lives with boyfriend, 1 child and shares custody of other 2 children. current occupational status: unemployed How many Children do You have: 2 Other Information That Helps Us Care for You: No Feels Safe at Home: Yes Childhood Exposure to Second-Hand Smoke: No Diet: regular caffeine: Yes during the past year weight has: remained stable Dental Care, Regularly: No Physical Activity Frequency: 3-4 Times per Week Seatbelt Use: always Sunscreen Use: Yes Assistive Devices: None OB History 3 FT 's [employer] History Denies history of STDs including chlamydia gonorrhea herpes Review of Systems as per Subjective / HPI Physical Exam Constitutional: WD/WN, vitals as above well developed, well nourished and + acute distress (With contractions) Gastrointestinal (Abdomen): normal bowel sounds, soft, nontender, no hepatosplenomegaly (Gravid) Genitourinary: normal external appearance OB Exam Abdomen: + vertex Manual OB Exam: + cervical dilation 3 cm, + cervical effacement 70% and + station -2 OB Exam Monitor Tracing: + external uterine monitor used and + category I Results & Data Vital Signs (Past 12 Hours) Vital Signs Temp Pulse Resp BP 06/14/23 05:04 36.7 C 18 06/14/23 04:57 87 121/75
[2023-06-14 06:28] LABS: Hematocrit (blood only) 35.5 % (37.0-47.0); Hemoglobin 11.5 g/dl (12.0-16.0); Mean Corpuscular Hemoglobin 29.7 pg (25.0-34.0); Mean Corpuscular Hgb Conc 32.4 g/dL (32.0-36.0); Mean Corpuscular Volume 91.7 fL (80.0-100.0); Mean Platelet Volume 10.7 fL (9.4-12.4); Platelet Count 153 K/uL (130-400); RDW Coefficient of Variation 13.5 % (11.5-14.5); RDW Standard Deviation 45.1 fL (36.4-46.3); Red Blood Count 3.87 M/uL (4.20-5.40); White Blood Count 11.53 K/ul (4.8-10.8)
[2023-06-14] MEDS: LACTATED RINGER'S 1,000 ML IV PRN (06:30)
[2023-06-14] MEDS: fentANYL 2 MCG/ML BUPIVacaine 0.125%-NSS 100ML BAG ONE (07:06)
[2023-06-14] MEDS: LIDOCAINE 2%/EPINEPHRINE 1:200,000 20 ML PF ONE (07:07)
[2023-06-14] MEDS: BUPIVACAINE 0.25% PF 30 ML VIAL ONE (07:07)
--- NOTE | 2023-06-14 07:12 | Anesthesiology Consultation ---
Date of Service June 14, 2023 Assessment & Plan Chart Review Chart Review: Acceptable Risk for Labor Epidural Consults Requested none History Height/Weight Height: 5 ft 8 in Weight: 73 kg Allergies Allergy/AdvReac Type Severity Reaction Status Date / Time prednisone Allergy Severe Hives Verified 11/15/21 11:50 Penicillins AdvReac Mild Hives Verified 06/14/23 06:50 Medications Home Medications Medication Instructions Recorded Confirmed Last Taken ferrous sulfate 325 mg (65 mg 325 mg PO DAILY 06/14/23 06/14/23 Unknown iron) tablet (iron) levothyroxine 25 mcg capsule 125 mcg PO DAILY 06/14/23 06/14/23 Unknown Past Medical History Medical History History of wrist fracture Active labor at term Past Family History Family History Aunt Breast cancer Denies family history of Ovarian cancer Prostate cancer Myocardial infarction Colorectal cancer Past Surgical History Surgical History No significant past surgical history Social History Smoking Status: Current every day smoker tobacco type: cigarettes Smoking cigarettes per day: 20 Do You Dip or Chew Tobacco: No Hx Alcohol Use: No Hx Substance Use: No Physical Exam Vital Signs Last Vital Signs Temp 36.7 C 06/14/23 05:04 Pulse 88 06/14/23 07:10 Resp 18 06/14/23 05:04 BP 116/58 L 06/14/23 07:10 Pulse Ox 99 06/14/23 07:07 Testing Laboratory Results 06/14/23 06:10
[2023-06-14] MEDS: SODIUM CHLORIDE 0.9% PF INJ 10 ML VIAL ONE (07:23)
[2023-06-14] MEDS: ePHEDrine sulfate 50 MG/ML AMP ONE (07:23)
[2023-06-14] MEDS: fentaNYL citrate PF 100 MCG/2 ML VIAL ONE (07:25)
[2023-06-14] MEDS: LEVOTHYROXINE SODIUM 125 MCG TABLET PO SCH (07:25)
[2023-06-14 10:06] LABS: Thyroid Stimulating Hormone 7.361 uIu/ml (0.300-4.500)
--- NOTE | 2023-06-14 10:20 | Obstetrical Progress Note ---
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 T4, Free: 0.8 (L) Admission and Anticipated Discharge Date Admission Date: June 14, 2023 Subjective Patient comfortable on epidural at this time Reviewed with patient that her TSH was 7.3, states she has missed her medication for several times. But notes her medication is just been increased recently to 125 mcg daily. Last TSh/FT4 in [facility] 05/16/23 08:49 TSH: 6.41 (H) TSH WITH FREE T4 IF INDICATED: Rpt ! T4, Free: 0.8 (L) Physical Exam Genitourinary: heart tracing: Baseline 1 20-1 25, moderate variability, positive accelerations no decelerations, category 1 tracing Tocometer: Contractions every 4 to 5 minutes Cervix: 5/60/-2, AROM performed with scant clear fluid, no cord felt, no complications Results & Data Vital Signs (Past 12 Hours) Vital Signs Temp Pulse Resp BP Pulse Ox 06/14/23 10:12 86 97 06/14/23 10:07 71 97 06/14/23 10:02 65 97 06/14/23 10:00 83 105/66 06/14/23 09:57 84 97 06/14/23 09:52 74 97 06/14/23 09:47 81 97 06/14/23 09:46 78 105/61 06/14/23 09:42 86 97 06/14/23 09:37 71 98 06/14/23 09:32 83 98 06/14/23 09:31 75 109/61 06/14/23 09:27 80 98 06/14/23 09:22 71 98 06/14/23 09:17 72 97 06/14/23 09:16 84 108/60 06/14/23 09:12 72 98 06/14/23 09:07 74 98 06/14/23 09:02 77 109/64 98 06/14/23 08:57 75 98 06/14/23 08:52 87 98 06/14/23 08:47 78 98 06/14/23 08:46 72 114/62 06/14/23 08:42 74 98 06/14/23 08:37 82 98 06/14/23 08:32 91 H 99 06/14/23 08:30 70 109/62 06/14/23 08:27 83 99 06/14/23 08:22 90 99 06/14/23 08:17 99 06/14/23 08:17 99 H 06/14/23 08:17 79 108/64 06/14/23 08:12 105 H 99 06/14/23 08:07 79 99 06/14/23 08:02 63 99 06/14/23 08:00 74 115/64 06/14/23 07:57 66 99 06/14/23 07:52 69 100 06/14/23 07:47 112 H 99 06/14/23 07:46 78 106/59 L 06/14/23 07:42 74 98 06/14/23 07:37 74 99 06/14/23 07:32 71 97 06/14/23 07:27 70 98 06/14/23 07:26 86 107/60 06/14/23 07:22 86 98 06/14/23 07:21 71 111/59 L 06/14/23 07:17 79 98 06/14/23 07:15 82 112/59 L 06/14/23 07:13 75 105/59 L 06/14/23 07:12 98 06/14/23 07:12 77 06/14/23 07:12 91 H 113/59 L 06/14/23 07:10 88 116/58 L 06/14/23 07:07 91 H 109/65 99 06/14/23 07:05 89 107/59 L 06/14/23 07:04 82 112/57 L 06/14/23 07:02 98 06/14/23 07:02 68 06/14/23 07:02 67 123/58 L 06/14/23 06:59 76 122/61 05 06:57 76 98 05/04/24 06:52 88 98 06/14/23 06:47 74 98 06/14/23 06:42 68 100 06/14/23 06:37 78 98 06/14/23 06:32 73 97 06/14/23 05:04 36.7 C 18 06/14/23 04:57 87 121/75
[2023-06-14 10:41] LABS: T4 Free Thyroxine 0.64 ng/dl (0.61-1.60)
[2023-06-14] MEDS: FERROUS SULFATE 325 MG TAB PO SCH (10:58)
[2023-06-14] MEDS ORDERED: HYDROCORTISONE ACETATE 25 MG SUPP PR PRN (11:59)
[2023-06-14] MEDS ORDERED: ACETAMINOPHEN 325 MG TAB PO PRN (11:59)
[2023-06-14] MEDS ORDERED: bisacodyL 10 MG SUPP PR PRN (11:59)
--- NOTE | 2023-06-14 12:01 | Delivery Summary ---
Vaginal Delivery Summary Date of Service June 14, 2023 Vaginal Delivery Summary Delivery Note History synopsis: Patient is a 27-year-old -0-1-3 at 40 weeks and 6 days who presents for term labor. On admission she was changed from 2 to 3 cm and received an epidural for pain control. She was rechecked after and found to be 6 cm and AROM was performed with scant amount of clear fluid. She was going to be started on oxytocin for augmentation as she was having hypotonic uterine co ntractions but made cervical change on her own and started tiarra every 1 to 2 minutes. She progressed to 8 cm and then complete and I was called for delivery Delivery Summary: Patient was placed in the dorsal lithotomy position. She was prepped and draped in the usual sterile fashion. Upon maternal pushing the head was delivered atraumatically followed by the anterior shoulders, posterior shoulders then the remainder of the infants body. Nuchal cord x 1 was reduced after delivery. The was immediately placed on mother's abdomen, dried and stimulated. Delayed cord clamping for 60 seconds was performed. The infants mouth and nose were bulb suctioned by nursing staff. A male infant was delivered at 1150, weight pending. With APGARS of 8 at 1 minute and 9 at 5 minutes. The infant was handed off to the awaiting nursing staff. Cord blood gases were not obtained. The placenta delivered intact with three vessel cord at 1154. Placenta was sent to pathology ([facility]). Thirty units of Pitocin were added to the IV fluid and allowed to run freely. Uterine massage was performed until uterus was deemed firm. Upon inspection of the perineum, vagina and cervix were intact. Upon re-inspection the patient was hemostatic. Uterus again massaged and found to be firm. Needle and sponge counts were correct. Patient was stable and allowed to recover in L&D room. Infant was stable and remained in room with mother in the labor and delivery unit.
--- NOTE | 2023-06-14 12:23 | Anesthesia Procedure Note ---
Date of Service June 14, 2023 Anesthesia Post Epidural Note Vital Signs Vital Signs: Temp Pulse Resp BP Pulse Ox 36.7 C 77 18 112/57 L 97 06/14/23 05:04 06/14/23 12:15 06/14/23 05:04 06/14/23 12:15 06/14/23 11:53 Notes Mental Status: alert / awake / arousable and participated in evaluation Nausea / Vomiting: adequately controlled Pain: adequately controlled Airway Patency, RR, SpO2: stable & adequate BP & HR: stable & adequate Hydration State: stable & adequate Neuraxial Anesthesia: was administered and sensory block is resolving Anesthetic Complications: no major complications apparent Epidural: Removed without complications and With tip intact
[2023-06-14] MEDS: DIPHTHER/TETAN/PERTUS Vaccine (Tdap, Adol/Adult) 0.5mL IM ONE (15:04)
[2023-06-14] MEDS: BENZOCAINE 20% SPRY 85 APPLN/85 GM CAN EXT PRN (15:05)
[2023-06-14] MEDS: DOCUSATE SODIUM 100 MG CAP PO SCH (21:20)
[2023-06-15 06:47] LABS: Hematocrit (blood only) 33.4 % (37.0-47.0); Mean Corpuscular Hemoglobin 30.4 pg (25.0-34.0); Mean Corpuscular Hgb Conc 32.9 g/dL (32.0-36.0); Mean Corpuscular Volume 92.3 fL (80.0-100.0); Mean Platelet Volume 11.1 fL (9.4-12.4); Platelet Count 134 K/uL (130-400); RDW Coefficient of Variation 13.6 % (11.5-14.5); RDW Standard Deviation 46.4 fL (36.4-46.3); Red Blood Count 3.62 M/uL (4.20-5.40); White Blood Count 11.75 K/ul (4.8-10.8)
[2023-06-15 07:03] LABS: Alanine Aminotransferase 5 U/L (7-52); Albumin Globulin Ratio 1.3 (0.9-2); Albumin Level 3.1 gm/dl (3.4-5.0); Alkaline Phosphatase 373 U/L (34-104); Anion Gap 5 (3-11); Aspartate Aminotransferase 14 U/L (13-39); BUN Creatinine Ratio 9.8 (10-20); Bilirubin,Total 0.3 mg/dl (0.2-1.0); Blood Urea Nitrogen 5 mg/dl (6-23); Calcium 8.1 mg/dl (8.6-10.3); Carbon Dioxide 24 mmol/L (21-32); Chloride 108 mmol/L (98-107); Creatinine Clr Calc Pharmacy 164.2 ml/min; Est GFR (African American) > 150.0 ml/min; Est GFR (Non-African American) 129.9 ml/min; Globulin 2.3 gm/dl (2.5-4.0); Glucose 75 mg/dl (70-99(Fasting)); Sodium 137 mmol/L (136-145); Total Protein 5.4 gm/dl (6.0-8.3)
[2023-06-15] MEDS: IBUPROFEN 600 MG TAB PO PRN (07:47)
--- NOTE | 2023-06-15 07:52 | Obstetrical Progress Note ---
Date of Service June 15, 2023 Assessment & Plan (1) Normal course: Continue routine care Anticipate discharge home today if patient is doing well and after endocrinology has seen patient (2) Elevated BP without diagnosis of hypertension: Noted elevated blood pressure yesterday evening, PIH labs normal If blood pressure becomes elevated again will meet criteria and will start p.o. medication for discharge home (3) Hypothyroidism affecting in third trimester: Awaiting endocrinology to see patient Subjective Ambulation: ambulating normally Voiding: no voiding problems Passing Gas:: Yes Diet Tolerance:: regular diet Lochia:: Small Feeding Type:: bottle feeding Current Pain Level(1-10): 0 Wants to be discharged home today No complaint Physical Exam Constitutional WD/WN, vitals as above Respiratory normal respiratory effort, lungs clear to auscultation Cardiovascular RRR, no murmur, no edema Gastrointestinal (Abdomen) normal bowel sounds, soft, nontender, no hepatosplenomegaly Fundus below umbilicus Results & Data Vital Signs (Past 12 Hours) Vital Signs Temp Pulse Resp BP Pulse Ox O2 Del Method 06/15/23 02:38 36.7 C 61 16 118/67 97 Room Air 06/14/23 23:18 36.9 C 68 16 128/71 97 Room Air 06/14/23 21:15 37.1 C 77 18 121/72 Laboratory Results Laboratory Results WBC 11.75 K/ul (4.8-10.8) H 06/15/23 06:03 RBC 3.62 M/uL (4.20-5.40) L 06/15/23 06:03 Hgb 11.0 g/dl (12.0-16.0) L 06/15/23 06:03 Hct 33.4 % (37.0-47.0) L 06/15/23 06:03 MCV 92.3 fL (80.0-100.0) 06/15/23 06:03 MCH 30.4 pg (25.0-34.0) 06/15/23 06:03 MCHC 32.9 g/dL (32.0-36.0) 06/15/23 06:03 RDW Std Deviation 46.4 fL (36.4-46.3) H 06/15/23 06:03 RDW Coeff of Josué 13.6 % (11.5-14.5) 05/05/24 06:03 Plt Count 134 K/uL (130-400) 06/15/23 06:03 MPV 11.1 fL (9.4-12.4) 06/15/23 06:03 Sodium 137 mmol/L (136-145) 06/15/23 06:03 Potassium 4.0 mmol/L (3.5-5.1) 06/15/23 06:03 Chloride 108 mmol/L (98-107) H 06/15/23 06:03 Carbon Dioxide 24 mmol/L (21-32) 06/15/23 06:03 Anion Gap 5 (3-11) 06/15/23 06:03 BUN 5 mg/dl (6-23) L 06/15/23 06:03 Creatinine 0.51 mg/dl (0.6-1.2) L 06/15/23 06:03 Est Cr Clr Drug Dosing 164.2 ml/min 06/15/23 06:03 Est GFR ( Amer) > 150.0 ml/min 06/15/23 06:03 Est GFR (Non-Af Amer) 129.9 ml/min 06/15/23 06:03 BUN/Creatinine Ratio 9.8 (10-20) L 06/15/23 06:03 Glucose 75 mg/dl (70-99(Fasting)) 06/15/23 06:03 Calcium 8.1 mg/dl (8.6-10.3) L 06/15/23 06:03 Total Bilirubin 0.3 mg/dl (0.2-1.0) 06/15/23 06:03 AST 14 U/L (13-39) 06/15/23 06:03 ALT 5 U/L (7-52) L 06/15/23 06:03 Alkaline Phosphatase 373 U/L (34-104) H 06/15/23 06:03 Total Protein 5.4 gm/dl (6.0-8.3) L 06/15/23 06:03 Albumin 3.1 gm/dl (3.4-5.0) L 06/15/23 06:03 Globulin 2.3 gm/dl (2.5-4.0) L 06/15/23 06:03 Albumin/Globulin Ratio 1.3 (0.9-2) 06/15/23 06:03 TSH 7.361 uIu/ml (0.300-4.500) H 06/14/23 09:18 Free T4 0.64 ng/dl (0.61-1.60) 06/14/23 09:18
[2023-06-15] MEDS: PRENATAL VITAMIN 1 TAB PO SCH (08:49)
[2023-06-15] MEDS: FERROUS SULFATE 325 MG TAB PO SCH (08:50)
--- NOTE | 2023-06-15 13:13 | Progress Note ---
Date of Service June 15, 2023 Assessment & Plan Admission and Anticipated Discharge Date Admission Date: June 14, 2023 Subjective Discuss[address] patient with Dr Prosper Davis (who does not take hospital call) Recommended patient take her levothyroxine as Rx and f/u outpatient in clinic this week Will d/c at this time Results & Data Vital Signs (Past 12 Hours) Vital Signs Temp Pulse Resp BP Pulse Ox O2 Del Method 06/15/23 07:40 36.6 C 78 16 120/70 99 Room Air 06/15/23 02:38 36.7 C 61 16 118/67 97 Room Air
[2023-06-15 14:42] LABS: Creatinine Urine Random 28.3 mg/dl; Protein Creatinine Ratio Urine 0.2 (0-0.2); Total Protein Urine Random 5.2 mg/dl (0-11.9)
[2023-06-15] MEDS ORDERED: bisacodyL 5 MG TABEC PO SCH (20:00)
--- OUTSIDE RECORDS SUMMARY | 2023-06-15 23:13 | External Medical Summary | Summary of Care ---
Author Name Unknown Organization [facility] Address [address] [facility] [place] [address] Phone [phone] Care Team Providers Care Fruit Vendor Name Role Phone Alice Marc MD Primary Care Provider Reason for Visit * Reason Comments Return Visit Encounter Details Date Type Department Care Team (Late st Contact Info) Description 06/12/2023 9:00 AM EDT Office Visit Gynecology/Obstetric s [facility] [address] [place] [address] Delma Pacheco CRNP [address] [place] [id number] Supervision of high risk , antepartum*; Hypothyroidism affecting in third trimester; History of gestational diabetes; Tobacco smoking affecting in third trimester; Depression complicating , antepartum Allergies Active Allergy Reactions Criticality Noted Date Comments Penicillins 04/14/2013 documented as of this encounter (statuses as of 06/12/2023) Medications Medication Sig Dispensed Refills Start Date End Date Status Complete Oral Capsule Therapy Pack Take by mouth. 0 Active Ferrous Sulfate 325 (65 Fe) MG Oral Tablet (Feosol)Indications:A ntepartum anemia complicating Take 1 Tablet by mouth in the morning and 1 Tablet before bedtime. 60 Tablet 12 04/03/2023 Active Levothyroxine Sodium 125 MCG Oral Tablet (Levoxyl)Indications: Hypothyroidism affecting in third trimester Take 1 Tablet by mouth in the morning. (at least 30 min prior to breakfast or other meds). 30 Tablet 3 05/19/2023 Active documented as of this encounter (statuses as of 06/12/2023) Active Problems Problem Noted Date Diagnosed Date Supervision of high risk , antepartum 0 11/05/2022 Hypothyroidism affecting 11/05/2022 Overview: TSH Results: Lab Results Component Value Date/Time TSH - [facility] 3.57 03/20/2023 12:35 PM TSH - [facility] 3.58 03/20/2023 12:35 PM TSH - [facility] 2.91 12/03/2022 09:54 AM TSH - [facility] 5.98 (H) 01/19/2020 12:25 PM TSH - [facility] 3.30 11/25/2019 05:02 PM TSH - [facility] 5.29 (H) 08/10/2019 10:31 AM TSH (first trimester, 0.1-2.5 mIU/L; second trimester, 0.2-3.0 mIU/L; third trimester, 0.3-3.0 mIU/L. RECOMMENDATIONS: 1. In women with prepregnancy diagnosis of hypothyroidism, recommend assessing TSH every 4-6 weeks until the patient is euthyroid based on TSH (first trimester, 0.1-2.5 mIU/L; second trimester, 0.2-3.0 mIU/L; third trimester, 0.3-3.0 mIU/L. 2. After any adjustment of thyroid replacement dosing, recheck TSH 4 weeks later. 3. Once euthyroidism is attained, TSH should be assessed every trimester. 4. In those with previous radioiodine ablation or thyroidectomy, anticipatory increases of T4 replacement by 25% are suggested to decrease the likelihood of significant hypothyroidism in . 5. Maternal Medicine ultrasound is only indicated if patient requires an adjustment of her thyroid replacement therapy dosing after the first trimester of . Refer back to Maternal Medicine if this occurs. She should continue to have growth assessments with Maternal Medicine while she is clinically hypothyroid. 6. If patient experiences thyroid goiter or nodule during , we recommend that she be referred to endocrinology for evaluation and management. is not a contraindication to fine needle aspiration, but should be handled at the discretion of the carpet cutter. 88 mcg levothyroxine started at 9 wks Increased to 100 mcg at 30w4d; referral to [facility] sent History of gestational diabetes 11/05/2022 Overview: Early GTT normal Tobacco use 11/05/2022 Tobacco smoking complicating 3 Depression complicating , antepartum Overview: escobar Acquired hypothyroidism 08/05/2019 Overview: Pt states she hasn't been on meds for 2 years due to insurance. TSH 5.29, ordered synthroid 25mcg to restart 08/11/19 TSH Target Levels in per MFM 0-14 weeks: 0.03-2.5 15-28 weeks: 0.03-3.0 28-40 weeks: 0.13-3.0 TSH(uIU/mL) Bianka Dt/Tm Resulted Value Status 11/25/19 5:02P 11/26/19 3.30 FINAL 08/10/19 10:31A 08/11/19 5.29* FINAL 06/23/17 2:53P 06/23/17 2.75 FINAL Advanced directives, counseling/discussion 06/14 Overview: No, Advance Directive brochure offered, patient declined. Estimated Date of Delivery Comme nts Yes 06/08/2023 Based on Ultraso und documented as of this encounter (statuses as of 06/12/2023) Resolved Problems Problem Noted Date Diagnosed Date Resolved Date Supervision of other normal 09/02/2019 03/17/2020 Overview: Problem Action Taken Date entered Entered by Date resolved Nutrition Provided due date letter for pt to attend WIC 09/02/2019 Nadege Velasquez RN 09/02/2019 1st Trimester education Reviewed w/pt 09/02/2019 Nadege Velasquez RN 09/02/2019 Problem Action Taken Date entered Entered by Date resolved Current needs or questions Patient denies having any current needs or questions 10/28/2019 Nadege Velasquez RN 10/28/2019 Problem Action Taken Date entered Entered by Date resolved Current needs or questions Patient denies having any current needs or questions 11/25/2019 Nadege Velasquez RN 11/25/2019 Problem Action Taken Date entered Entered by Date resolved 3rd trimester education reviewed w/pt 11/25/2019 Nadege Velasquez RN 11/25/2019 Problem Action Taken Date entered Entered by Date resolved Current needs or questions Patient denies having any current needs or questions 12/09/2019 Nadege Velasquez RN 12/09/2019 Problem Action Taken Date entered Entered by Date resolved Current needs or questions Patient denies having any current needs or questions 01/11/2020 Nadege Velasquez RN 01/11/2020 Hx of gestational diabetes i n prior , currently 08/05/2019 03/17/2020 Overview: Diet controlled Positive RPR test 03/26/2017 08/05/2019 Overview: 1/2 titer Confirmatory test ordered, has not completed yet Hypothyroid in , antepartum 03/03/2017 05/07/2017 Overview: NOB labs drawn @ 28weeks- TSH 4.85, FT4 low; restart levoxyl 25mcg daily Supervision of other normal , antepartum 01/31/2017 05/07/2017 Overview: Late care at approx 24 weeks Pt was not aware of Problem Action Taken Date entered Entered by Date resolved Smoking/tobacco abuse Smoking Education- Down to 3-4 per day Cessation discussed 01/31/2017 Chiquita Knight RN 01/31/2017 nutrition Declines WIC 01/31/2017 Chiquita Knight RN 01/31/2017 education declines needs for home nursing or PNC 01/31/2017 Chiquita Knight RN 01/31/2017 Problem Action Taken Date entered Entered by Date resolved Current needs or questions Patient denies having any current needs or questions 02/25/2017 Nadege Velasquez RN 02/25/17 Problem Action Taken Date entered Entered by Date resolved Current needs or questions Patient denies having any current needs or questions 03/12/2017 Nadege Velasquez RN 03/12/17 Problem Action Taken Date entered Entered by Date resolved Current needs or questions Patient denies having any current needs or questions 03/26/2017 Chiquita Knight, RN 03/26/2017 Problem Action Taken Date entered Entered by Date resolved Current needs or questions Patient denies having any current needs or questions 04/09/2017 Nan Berg, RN 04/09/2017 Tobacco smoking complicating 01/31/2017 05/07/2017 Overview: Smoking 3-4cig/day at NOB Abnormal glucose tolerance i n mother complicating 08/03/2014 10/20/2014 Overview: 1hr gtt elevated at 146; pt declines 3hr gtt; will check BS's QID-fasting and 3- 2hr PP's. Choroid plexus cyst of fetus 06/14/2014 01/31/2017 Abnormal thyroid blood test 04/08/2014 01/31/2017 Overview: 03/09/14: TSH 5.46 03/29/14: TSH 3.25, fT3 and fT4 normal. History of RPR test 04/08/2014 03/17/19 21 Overview: 08/11/19 + RPR during (1:2); Reflex testing ordered 11/25/2019: + RPR (1:2) FTA-ABS negative , normal first 03/09/201410/11 Overview: 03/09/14: O + bloodtype; positive red blood cell antibody screen with nonspecific reactivity; direct Randal negative Recommend crossmatch compatible RBC if transfusion is necessary. The current status of the patient s antibody screen does not place her at risk for hemolytic transfusion reaction or hemolytic disease of the . Multiple DIRECTOR OF GIFT PLANNING's on anatomy sono- resolved on f/u anatomy sono Tobacco use in 03/09/201411/2014 Overview: Smoking 10cig/day at NOB visit 08/03/14 @30wks: smoking 2cig/day INFORMATION 03/09/2014 05/07/2017 Overview: FOB and fob's brother with aortic stenosis echo (pt desires this to be in [place]) O + bloodtype; + antibody screen; direct Randal negative Patient has a history of nonspecific reactivity. 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 Per [facility] report: Patient plasma reacts with all reagent red cells and autologous cells. The pattern of reactivity is characteristic of Anti-Sda. Sda can be found in body fluids and tissue. The highest concentration of SDA can be found in the urine. Anti-SDa will make crossmatch compatibility difficult, however the Anti-Sda is clinically insignificant itself. weigh risks and benefits when choosing to transfuse. Common clinically significant antibodies have been ruled out. Transfused red blood cells will likely have a similar lifespan to the patient's own red blood cells. documented as of this encounter (statuses as of 06/12/2023) Immunizations Name Administration Dates Next Due TDAP (age 10 and older)(Boostrix) 11/25/2019, TDAP (age 11 and older)(Adacel) 11/20/2005 documented as of this encounter Social History Tobacco Use Types Packs/Day Years Used Date Smoking Tobacco: Every Day Cigarettes 0.5 13.3 Started: 02/10/2010 Smokeless Tobacco: Never Alcohol Use Standard Drinks/Week Comments Not Currently 0 (1 standard drink = 0.6 oz pur e alcohol) PHQ-2 Answer Date Recorded PHQ-2 Score 0 12/14/2017 Hunger Vital Sign Answer Date Recorded Within the past 12 months, y ou worried that your food would run out before you got the money to buy more. Patient declined Within the past 12 months, t he food you bought just didn't last and you didn't have money to get more. Patient declined [place] Depression Scale Answer Date Recorded [place] Depression Scale Total 5 04/28/2023 The thought of harming myself has occurred to me . Never 04/28/2023 Estimated Date of Delivery Comme nts Yes 06/08/2023 Based on Ultraso und Sex and Gender Information Value Date Recorded Sex Assigned at Not on file Gender Identity Not on file Sexual Orientation Not on file Job Start Date Occupation Industry Not on file Not on file Not on file documented as of this encounter Last Filed Vital Signs Vital Sign Reading Time Taken Comments Blood Pressure 114/66 06/12/2023 8:52 AM EDT Pulse - - Temperature - - Respiratory Rate - - Oxygen Saturation - - Inhaled Oxygen Concentration - - Weight 73 kg (161 lb) 06/12/2023 8:52 AM EDT Height - - Body Mass Index 24.49 06/04/2023 4:29 PM EDT documented in this encounter Progress Notes * Delma Pacheco CRNP - 06/12/2023 8:54 AM EDT 40w4d No signs of labor, baby moving well. Just more uncomfortable. IOL changed to 06/16. Will return Friday for NST/MADELYN as she will be 41+ weeks. Call with any decreased FM or signs of labor. YONI Soliz * Tanisha Sun LPN - 06/12/2023 8:51 AM EDT 40w4d Denies vaginal bleeding/rom + movement No new concerns documented in this encounter Plan of Treatment Upcoming Encounters Date Type Department Care Team (Late st Contact Info) Description 06/16/2023 2:00 PM EDT Imaging Radiology [facility] [address] [facility] [place] [id number] 06/16/2023 2:45 PM EDT Office Visit Gynecology/Obstetrics [facility] [address] [facility] [place] [address] Lynsey Cleveland CNM [address] [place] [address] [place] [address] Jennifer Moody Stress Tests [facility] [address] [place] [address] Scheduled Orders Name Type Priority Associated Diagnoses Orde r Schedule US PREG LIMITED 1 OR MORE FETUSES Medical Imaging Routine Supervision of high risk , antepartum Expected: 06/16/2023, Expires: 07/12/2024 Health Maintenance Due Date Last Done Comments Pneumococcal Vaccine: Pediatrics (0 to 5 Years) and At-Risk Patients (6 to 64 Years) (1 of 2 - PCV) 11/09/1999 COVID-19 Vaccine (1 - season) 2022 Influenza Vaccine (FLU shot) (Season Ended) 2023 TSH 05/15/2024 05/16/2023, 09/2023, 03/20/2023, Additional history exists Pap Smear 11/05/2025 11/05/2022, 07/12, 11/16/2014 DTaP,Tdap,and Td Vaccines (9 - Td or Tdap) 11/24/2029 11/25/2019, 08/03/2014, 11/20/2005, Additional history exists Hepatitis B Completed 06/04/1994, 01/10, 1993 GARDASIL-HPV IMMUNIZATION SERIES Aged Out No longer eligible based on patient's age to complete this topic MENINGOCOCCAL (MENACTRA/MENVEO) Aged Out No longer eligible based on patient's age to complete this topic documented as of this encounter Medical Devices Not on filedocumented as of this encounter Visit Diagnoses Diagnosis Supervision of high risk , antepartum- Primary Hypothyroidism affecting in third trimester History of gestational diabetes Personal history of gestational diabetes Tobacco smoking affecting in third trimester Depression complicating , antepartum Mental disorders of mother, antepartum documented in this encounter Care Teams Fruit Vendor Relationship Specialty Start Date End Date Alice Marc MD [address] [place] [address] PCP - General Family Medicine 12/22/14 documented as of this encounter
--- OUTSIDE RECORDS SUMMARY | 2023-06-15 23:13 | External Medical Summary | Summary of Care ---
Author Name Unknown Organization [facility] Address [address] [facility] [place] [address] Phone [phone] Care Team Providers Care Developmental Specialist Name Role Phone Alice Marc MD Primary Care Provider Reason for Visit * Reason Comments Return Visit Non Stress Test Encounter Details Date Type Department Care Team (Late st Contact Info) Description 05/28/2023 1:00 PM EDT Office Visit Gynecology/Obstetric s [facility] [address] [place] [address] Delma Pacheco CRNP [address] [place] [phone] [place], Non Stress Tests [facility] [address] [place] [phone] Supervision of high risk , antepartum*; Hypothyroidism affecting in third trimester; History of gestational diabetes; Tobacco smoking affecting in third trimester; Depression complicating , antepartum Allergies Active Allergy Reactions Criticality Noted Date Comments Penicillins 04/14/2013 documented as of this encounter (statuses as of 05/28/2023) Medications Medication Sig Dispensed Refills Start Date [...] as of this encounter (statuses as of 05/28/2023) Active Problems Problem Noted Date Diagnosed Date [...] be handled at the discretion of the farm instructor. 88 mcg levothyroxine started at 9 wks Increased to 100 mcg at 30w4d; referral to [facility] sent History of gestational diabetes 11/05/2022 Overview: Early GTT normal Tobacco use 11/05/2022 Tobacco smoking complicating 3 Depression complicating , antepartum Overview: escobar Acquired hypothyroidism 08/05/2019 Overview: Pt states she hasn't been on meds for 2 years due to insurance. TSH 5.29, ordered synthroid 25mcg to restart 08/11/19 TSH Target Levels in per [facility] 0-14 weeks: 0.03-2.5 15-28 weeks: 0.03-3.0 28-40 weeks: 0.13-3.0 TSH(uIU/mL) Bianka Dt/Tm Resulted Value Status 11/25/19 5:02P 11/26/19 3.30 FINAL 08/10/19 10:31A 08/11/19 5.29* FINAL 06/23/17 2:53P 06/23/17 2.75 FINAL Advanced directives, counseling/discussion 06/14 Overview: No, Advance Directive brochure offered, patient declined. Estimated Date of Delivery Comme nts Yes 06/08/2023 Based on Ultraso und documented as of this encounter (statuses as of 05/28/2023) Resolved Problems Problem Noted Date Diagnosed Date Resolved Date Supervision of other normal 09/02/2019 03/17/2020 Overview: Problem Action Taken Date entered Entered by Date resolved Nutrition Provided due date letter for pt to attend [facility] 09/02/2019 Nadege Velasquez RN 09/02/2019 1st Trimester [...] any current needs or questions 03/12/2017 Nadege Velasquez, VANDANA 03/12/17 Problem Action Taken Date entered Entered by Date resolved Current needs or questions Patient denies having any current needs or questions 03/26/2017 Chiquita Knight RN 03/26/2017 Problem Action Taken Date entered Entered by Date resolved Current needs or questions Patient denies having any current needs or questions 04/09/2017 Nan Berg, VANDANA 04/09/2017 Tobacco smoking complicating 01/31/2017 05/07/2017 Overview: [...] or hemolytic disease of the . Multiple MEDICAL DETAIL REPRESENTATIVE's on anatomy sono- resolved on f/u anatomy sono Tobacco use in 03/09/201411/2014 Overview: Smoking 10cig/day at NOB visit 08/03/14 @30wks: smoking 2cig/day INFORMATION 03/09/2014 05/07/2017 Overview: FOB and fob's brother with aortic stenosis echo (pt desires this to be in [place]) O + bloodtype; + antibody screen; direct Randal negative Patient has a history of nonspecific reactivity. 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 Per [facility] report: Patient [...] as of this encounter (statuses as of 05/28/2023) Immunizations Name Administration Dates Next Due TDAP [...] have money to get more. Patient declined [place] Depression Scale Answer Date Recorded [place] Depression Scale Total 5 04/28/2023 The thought [...] Sign Reading Time Taken Comments Blood Pressure 114/62 05/28/2023 1:02 PM EDT Pulse - - Temperature - - Respiratory Rate - - Oxygen Saturation - - Inhaled Oxygen Concentration - - Weight 74.8 kg (165 lb) 05/28/2023 1:02 PM EDT Height - - Body Mass Index 25.1 05/19/2023 8:56 AM EDT documented in this encounter Progress Notes * Delma Pacheco CRNP - 05/28/2023 1:06 PM EDT 38w3d Baby is moving well. No leaking, bleeding. Some irregular ctx. Per Ask A Doc with MFM on 05/18, NST not indicated. Reviewed their note with pt. She has an ultrasound ordered to recheck MADELYN; this was not scheduled. She is unable to stay later today for scan, will schedule at checkout for this week. 1 week return YONI Soliz * Jane Fay MED ASSIST - 05/28/2023 1:02 PM EDT 38w3d No concerns documented in this encounter Plan of Treatment Upcoming Encounters Date Type Department Care Team (Late st Contact Info) Description 05/29/2023 3:30 PM EDT Imaging Radiology [address] [place] [address] 06/04/2023 4:30 PM EDT Office Visit [facility] [address] [place] [address] Tiffanie Tan PA-C [address] [place] [address] Health Maintenance Due Date Last Done Comments Pneumococcal Vaccine: Pediatrics (0 to 5 Years) and At-Risk Patients (6 to 64 Years) (1 of 2 - PCV) 11/09/1999 COVID-19 Vaccine (1 - 2022-24 season) 2022 Influenza Vaccine (FLU shot) (Season [...] antepartum documented in this encounter Care Teams Developmental Specialist Relationship Specialty Start Date End Date Alice Marc MD [address] [place] [address] PCP - General Family Medicine 12/22/14 documented as of this encounter
--- OUTSIDE RECORDS SUMMARY | 2023-06-15 23:13 | External Medical Summary | Summary of Care ---
Author Name Unknown Organization [facility] Address [address] [facility] [place] [address] Phone [phone] Care Team Providers Care Director Of Bands Name Role Phone Alice Marc MD Primary Care Provider Reason for Visit * Reason Comments Return Visit Encounter Details Date Type Department Care Team (Late st Contact Info) Description 06/04/2023 4:30 PM EDT Office Visit Gynecology/Obstetric s [facility] [address] [place] [address] Tiffanie Tan PA-C [address] [place] [address] Supervision of high risk , antepartum*; Hypothyroidism affecting in third trimester; History of gestational diabetes; Tobacco smoking affecting in third trimester; Depression complicating , antepartum Allergies Active Allergy Reactions Criticality Noted Date Comments Penicillins 04/14/2013 documented as of this encounter (statuses as of 06/04/2023) Medications Medication Sig Dispensed Refills Start Date [...] as of this encounter (statuses as of 06/04/2023) Active Problems Problem Noted Date Diagnosed Date [...] be handled at the discretion of the windows technical specialist. 88 mcg levothyroxine started at 9 wks Increased to 100 mcg at 30w4d; referral to [facility] sent History of gestational diabetes 11/05/2022 [...] as of this encounter (statuses as of 06/04/2023) Resolved Problems Problem Noted Date Diagnosed Date [...] or hemolytic disease of the . Multiple DOG HANDLER's on anatomy sono- resolved on f/u anatomy sono Tobacco use in 03/09/201411/2014 Overview: Smoking 10cig/day at NOB visit 08/03/14 @30wks: smoking 2cig/day INFORMATION 03/09/2014 05/07/2017 Overview: FOB and fob's brother with aortic stenosis echo (pt desires this to be in [place]) O + bloodtype; + antibody screen; direct Randal negative Patient has a history of nonspecific reactivity. 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 Per [facility] report: Patient [...] as of this encounter (statuses as of 06/04/2023) Immunizations Name Administration Dates Next Due TDAP [...] have money to get more. Patient declined [place] Depression Scale Answer Date Recorded [place] Depression Scale Total 5 04/28/2023 The thought [...] Sign Reading Time Taken Comments Blood Pressure 136/76 06/04/2023 4:29 PM EDT Pulse - - Temperature - - Respiratory Rate - - Oxygen Saturation - - Inhaled Oxygen Concentration - - Weight 74.8 kg (165 lb) 06/04/2023 4:29 PM EDT Height 172.7 cm (5' 7.99") 06/04/2023 4:29 PM ED T Body Mass Index 25.1 06/04/2023 4:29 PM EDT documented in this encounter Progress Notes * Tiffanie Tan PA-C - 06/04/2023 4:44 PM EDT 39w3d Had ultrasound following last appointment regarding MADELYN check. Ultrasound showed MADELYN normal 10.2 cmwith MVP of 3 cm. Reports intermittent cramping, not severe no timing. Desires cervical check. Denies VB, LOF. Baby is active. Asking to schedule IOL as soon as she can. Scheduled first available 06/18. FHT 115 bpm with doppler. Baby noted to be active and moving after doppler removed. NST completed. ASSESSMENT assessment with Non-stress Test completed on 06/04/2023 at 39.3 weeks gestation for indicationof low baseline. heart baseline: 120 bpm Variability: Moderate Decelerations: absent Accelerations: present Contractions: None NST start time: 16:39 NST stop time: 17:03 NST strip reviewed, interpreted, and approved by OB provider, Tiffanie Tan PA-C. NST strip stored in clinic storage file documented in this encounter Nursing Notes * Seema Álvarez LPN - 06/04/2023 4:31 PM EDT 39w3d Denies concerns Would like to schedule IOL. documented in this encounter Plan of Treatment Upcoming Encounters Date Type Department Care Team (Late st Contact Info) Description 06/12/2023 9:00 AM EDT Office Visit Gynecology/Obstetrics [address] [place] [address] [place], YONI Lucero [address] [place] [address] Health Maintenance Due Date Last Done Comments [...] antepartum documented in this encounter Care Teams Director Of Bands Relationship Specialty Start Date End Date Alice Marc MD [address] [facility] [address] PCP - General Family Medicine 12/22/14 documented as of this encounter
--- OUTSIDE RECORDS SUMMARY | 2023-06-15 23:14 | External Medical Summary | Summary of Care ---
Author Name Unknown Organization [facility] Address [address] [place] [address] Phone [phone] Care Team Providers Care Manager Cosmetics Name Role Phone Alice Marc MD Primary Care Provider Encounter Details Date Type Department Care Team (Late st Contact Info) Description 05/26/2023 Orders Only Outcomes Research Department [address] [place] [address] Mireya Rosado CHRA [employer] Research Other*[id number] Allergies No known active allergiesdocumented as of this encounter (statuses as of 05/26/2023) Medications Medication Sig Dispensed Refills Start Date [...] as of this encounter (statuses as of 05/26/2023) Active Problems Problem Noted Date Diagnosed Date [...] be handled at the discretion of the information security. 88 mcg levothyroxine started at 9 wks Increased to 100 mcg at 30w4d; referral to [facility] sent History of gestational diabetes 11/05/2022 Overview: Early GTT normal Tobacco use 11/05/2022 Tobacco smoking complicating 3 Depression complicating , antepartum Overview: zoloft Acquired hypothyroidism 08/05/2019 Overview: Pt states she [...] as of this encounter (statuses as of 05/26/2023) Resolved Problems Problem Noted Date Diagnosed Date [...] any current needs or questions 04/09/2017 Nan Berg RN 04/09/2017 Tobacco smoking complicating 01/31/2017 05/07/2017 [...] or hemolytic disease of the . Multiple PHOTO CARTOGRAPHER's on anatomy sono- resolved on f/u anatomy sono Tobacco use in 03/09/201411/2014 Overview: Smoking 10cig/day at NOB visit 08/03/14 @30wks: smoking 2cig/day INFORMATION 03/09/2014 05/07/2017 Overview: FOB and fob's brother with aortic stenosis echo (pt desires this to be in [place]) O + bloodtype; + antibody screen; direct Randal negative Patient has a history of nonspecific reactivity. 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 Per ARC report: Patient [...] as of this encounter (statuses as of 05/26/2023) Immunizations Name Administration Dates Next Due TDAP [...] have money to get more. Patient declined [place] Depression Scale Answer Date Recorded [place] Depression Scale Total 5 04/28/2023 The thought [...] on file documented as of this encounter Plan of Treatment Upcoming Encounters Date Type Department Care Team (Late st Contact Info) Description 05/28/2023 1:00 PM EDT Office Visit Gynecology/Obstetrics [facility] [place] [address] [place] [address] Delma Pacheco CRNP [address] [place] [address] [place], Non Stress Tests Yovany [address] [place] [address] 06/04/2023 1:45 PM EDT Office Visit Gynecology/Obstetrics [facility] [place] [address] [place] [address] Elva Duvall CRNP [address] [place] [address] [place], Non Stress Tests Yovany [address] [place] [address] Scheduled Orders Name Type Priority Associated Diagnoses Orde r Schedule MYCODE SUBSEQUENT ADULT Lab Routine [employer] Research Other*[id number] Every 6 Months for 2 Occurrences starting 05/26/2023 until 06/14/2024 Health Maintenance Due Date Last Done Comments Pneumococcal Vaccine: Pediatrics (0 to 5 Years) and At-Risk Patients (6 to 64 Years) (1 of 2 - PCV) 11/09/1999 COVID-19 Vaccine (1 - 2022- season) 2022 Influenza Vaccine (FLU shot) (Season [...] as of this encounter Visit Diagnoses Diagnosis [employer] Research Other*[id number] documented in this encounter Care Teams Manager Cosmetics Relationship Specialty Start Date End Date Alice Marc MD [address] [place] [address] PCP - General Family Medicine 12/22/14 documented as of this encounter
--- OUTSIDE RECORDS SUMMARY | 2023-06-15 23:14 | External Medical Summary ---
Author Name Unknown Address Unknown Organization K01:LABORATORY [facility] [place] - [address] [place] [address] Laboratory Report Ordering Provider Test Date Status ARUNA ELIZONDO 05/16/2023 08:49:58 Final Observation Date Value Abnormality Reference (Units ) Status MYCODE SPECIMEN-SST 05/16/2023 08:49:58 Freezing of extracted DNA, whole blood and/or serum. Final Performing Location LABORATORY [facility] - [address] [place] [address]
--- OUTSIDE RECORDS SUMMARY | 2023-06-15 23:14 | External Medical Summary | Summary of Care ---
Author Name Unknown Organization [facility] Address [address] [place] [address] Phone [phone] Care Team Providers Care Home Health Care Worker Name Role Phone Alice Marc MD Primary Care Provider Reason for Visit * Reason Comments Return Visit Encounter Details Date Type Department Care Team (Late st Contact Info) Description 05/19/2023 9:00 AM EDT Office Visit Gynecology/Obstetric s [facility] [place] [address] [place] [address] Tiffanie Tan PA-C [address] [place] [address] Supervision of high risk , antepartum*; Hypothyroidism affecting in third trimester; History of gestational diabetes; Tobacco smoking affecting in third trimester; Depression complicating , antepartum Allergies No known active allergiesdocumented as of this encounter (statuses as of 05/19/2023) Medications Medication Sig Dispensed Refills Start Date [...] as of this encounter (statuses as of 05/19/2023) Active Problems Problem Noted Date Diagnosed Date [...] be handled at the discretion of the mother tester. 88 mcg levothyroxine started at 9 wks Increased to 100 mcg at 30w4d; referral to [facility] sent History of gestational diabetes 11/05/2022 [...] as of this encounter (statuses as of 05/19/2023) Resolved Problems Problem Noted Date Diagnosed Date [...] or hemolytic disease of the . Multiple LIQUIFIED NATURAL GAS TECHNICIAN's on anatomy sono- resolved on f/u anatomy sono Tobacco use in 03/09/201411/2014 Overview: Smoking 10cig/day at NOB visit 08/03/14 @30wks: smoking 2cig/day INFORMATION 03/09/2014 05/07/2017 Overview: FOB and fob's brother with aortic stenosis echo (pt desires this to be in [place]) O + bloodtype; + antibody screen; direct Randal negative Patient has a history of nonspecific reactivity. 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 Per ARC report: Patient [...] as of this encounter (statuses as of 05/19/2023) Immunizations Name Administration Dates Next Due TDAP [...] have money to get more. Patient declined [place] Depression Scale Answer Date Recorded [place] Depression Scale Total 5 04/28/2023 The thought [...] Sign Reading Time Taken Comments Blood Pressure 110/64 05/19/2023 8:56 AM EDT Pulse - - Temperature - - Respiratory Rate - - Oxygen Saturation - - Inhaled Oxygen Concentration - - Weight 73.5 kg (162 lb) 05/19/2023 8:56 AM EDT Height 172.7 cm (5' 7.99") 05/19/2023 8:56 AM ED T Body Mass Index 24.64 05/19/2023 8:56 AM EDT documented in this encounter Progress Notes * Tiffanie Tan PA-C - 05/19/2023 9:10 AM EDT 37w1d Reviewed abnormal thyroid labs with her from 05/16/2023. TSH 6.41. Free T4 0.8. Pt states taking medication daily as prescribed. When I asked her what dose she was taking daily, she stated didn't know.States taking most up to date medication but unsure of dose. Recommend she confirm dose is 100 mcg when she gets home. If so, plan to increase to 125 mcg as sent in. Counseled patient uncontrolled hypothyroidism. Recommend she see MFM, patient declines. Discussed increased risk of loss, placental abruption and pre-eclampsia. Recommend weekly NST and growth as soon as possible. She was agreeable. ASSESSMENT assessment with Non-stress Test completed on 05/19/2023 at 37.1 weeks gestation for indication of uncontrolled hypothyrodism heart baseline: 120 bpm Variability: Moderate Decelerations: absent Accelerations: present Contractions: None, uterine irritability NST start time: 09:07 NST stop time: 09:29 NST strip reviewed, interpreted, and approved by OB provider, Tiffanie Tan PA-C. NST strip stored in clinic storage file RTC in 1 week for DIONICIO/NST Growth MATTY Tiffanie Tan PA-C * Natalya Mandujano LPN - 05/19/2023 8:53 AM EDT 37w1d No concerns documented in this encounter Plan of Treatment Upcoming Encounters Date Type Department Care Team (Late st Contact Info) Description 05/19/2023 12:45 PM EDT Imaging Radiology [address] [place] [address] 05/28/2023 1:00 PM EDT Office Visit Gynecology/Obstetrics [place]ou[facility] Golds [address] [place] [address] Delma Pacheco CRNP [address] [place] [address] [place], Non Stress Tests Yovany [address] [place] [address] 06/04/2023 1:45 PM EDT Office Visit Gynecology/Obstetrics [place] [address] [place] [address] Elva Duvall CRNP [address] [place] [address] [place] Non Stress Tests Yovany [address] [place] [address] Health Maintenance Due Date Last Done Comments Pneumococcal Vaccine: Pediatrics (0 to 5 Years) and At-Risk Patients (6 to 64 Years) (1 of 2 - PCV) 11/09/1999 COVID-19 Vaccine ( - 2022- season) 2022 Influenza Vaccine (FLU [...] antepartum documented in this encounter Care Teams Home Health Care Worker Relationship Specialty Start Date End Date Alice Marc MD [address] [facility] [place] [address] PCP - General Family Medicine 12/22/14 documented as of this encounter
--- OUTSIDE RECORDS SUMMARY | 2023-06-15 23:14 | External Medical Summary | Summary of Care ---
Author Name Unknown Organization [facility] Address [address] [facility] [place] [address] Phone [phone] Care Team Providers Care Commodity Merchant Name Role Phone Alice Marc MD Primary Care Provider Reason for Visit * Reason Comments Return Visit Encounter Details Date Type Department Care Team (Late st Contact Info) Description 05/12/2023 9:00 AM EDT Office Visit Gynecology/Obstetric s [facility] [address] [place] [address] Tiffanie Tan PA-C [address] [place] [address] Supervision of high risk , antepartum*; Hypothyroidism affecting in third trimester; History of gestational diabetes; Tobacco smoking affecting in third trimester; Depression complicating , antepartum Allergies No known active allergiesdocumented as of this encounter (statuses as of 05/12/2023) Medications Medication Sig Dispensed Refills Start Date End Date Status Complete Oral Capsule Therapy Pack Take by mouth. 0 Active Ferrous Sulfate 325 (65 Fe) MG Oral Tablet (Feosol)Indications:A ntepartum anemia complicating Take 1 Tablet by mouth in the morning and 1 Tablet before bedtime. 60 Tablet 12 04/03/2023 Active Levothyroxine Sodium 100 MCG Oral Tablet (Levoxyl)Indications: Hypothyroidism affecting in third trimester Take 1 Tablet by mouth in the morning. (at least 30 min prior to breakfast or other meds). 30 Tablet 3 04/03/2023 Active documented as of this encounter (statuses as of 05/12/2023) Active Problems Problem Noted Date Diagnosed Date [...] be handled at the discretion of the staff auditor. 88 mcg levothyroxine started at 9 wks Increased to 100 mcg at 30w4d; referral to [facility] sent History of gestational diabetes [...] as of this encounter (statuses as of 05/12/2023) Resolved Problems Problem Noted Date Diagnosed Date [...] or hemolytic disease of the . Multiple BEEF SELECTOR's on anatomy sono- resolved on f/u anatomy sono Tobacco use in 03/09/201411/2014 Overview: Smoking 10cig/day at NOB visit 08/03/14 @30wks: smoking 2cig/day INFORMATION 03/09/2014 05/07/2017 Overview: FOB and fob's brother with aortic stenosis echo (pt desires this to be in [place]) O + bloodtype; + antibody screen; direct Randal negative Patient has a history of nonspecific reactivity. 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 Per ARC report: Patient [...] as of this encounter (statuses as of 05/12/2023) Immunizations Name Administration Dates Next Due TDAP (age 10 and older)(Boostrix) 11/25/2019, TDAP (age 11 and older)(Adacel) 11/20/2005 documented as of this encounter Social History Tobacco Use Types Packs/Day Years Used Date Smoking Tobacco: Every Day Cigarettes 0.5 13.2 Started: 02/10/2010 Smokeless Tobacco: Never Alcohol Use [...] have money to get more. Patient declined [place] Depression Scale Answer Date Recorded [place] Depression Scale Total 5 04/28/2023 The thought [...] Sign Reading Time Taken Comments Blood Pressure 104/58 05/12/2023 9:01 AM EDT Pulse - - Temperature - - Respiratory Rate - - Oxygen Saturation - - Inhaled Oxygen Concentration - - Weight 73.2 kg (161 lb 6.4 oz) 05/12/2023 9:01 A M EDT Height 172.7 cm (5' 7.99") 05/12/2023 9:01 AM ED T Body Mass Index 24.55 05/12/2023 9:01 AM EDT documented in this encounter Progress Notes * Tiffanie Tan PA-C - 05/12/2023 9:15 AM EDT 36w1d Denies VB, LOF, contractions. Pos fm. Some hip pain but overall doing fine. Due for GBS, collected. Recommend she stop at lab for TSH, CBC ordered last visit. Pt states she will. RTC in 1 week Tiffanie Tan PA-C documented in this encounter Nursing Notes * Seema Álvarez LPN - 05/12/2023 9:04 AM EDT 36w1d Denies concerns GBS today. documented in this encounter Plan of Treatment Upcoming Encounters Date Type Department Care Team (Late st Contact Info) Description 05/19/2023 9:00 AM EDT Office Visit Gynecology/Obstetrics [facility] [address] [place] [address] Tiffanie Tan PA-C [address] [place] [address] 05/26/2023 8:45 AM EDT Office Visit Gynecology/Obstetrics [facility] [address] [place] [address] Delma Pacheco CRNP [address] [place] [address] 06/02/2023 8:45 AM EDT Office Visit Gynecology/Obstetrics [facility] [address] [place] [address] Kerry Hewitt, DNP, CN [address] [place] [id number] Scheduled Orders Name Type Priority Associated Diagnoses Orde r Schedule GROUP B STREP CULTURE/PCR Lab Routine Supervision of high risk , antepartum Ordered: 05/12/2023 Health Maintenance Due Date Last Done Comments Pneumococcal Vaccine: Pediatrics (0 to 5 Years) and At-Risk Patients (6 to 64 Years) (1 of 2 - PCV) 11/09/1999 Depression Screening 06/19/2018 06/19/2017 COVID-19 Vaccine ( - 2022- season) 2022 Influenza Vaccine (FLU shot) (Season Ended) 2023 TSH 03/20/2024 03/20/2023, 09/2023, 12/03/2022, Additional history exists Pap Smear 11/05/2025 11/05/2022, [...] antepartum documented in this encounter Care Teams Commodity Merchant Relationship Specialty Start Date End Date Alice Marc MD [address] [place] [address] [place] [address] PCP - General Family Medicine 12/22/14 documented as of this encounter
--- OUTSIDE RECORDS SUMMARY | 2023-06-15 23:14 | External Medical Summary | Summary of Care ---
Author Name Unknown Organization [facility] Address [address] [facility] [place] [address] Phone [phone] Care Team Providers Care Room Service Food Server Name Role Phone Alice Marc MD Primary Care Provider Reason for Visit * Reason Comments Return Visit Encounter Details Date Type Department Care Team (Late st Contact Info) Description 04/28/2023 8:45 AM EDT Office Visit Gynecology/Obstetric s [facility] [address] [place] [address] Delma Pacheco CRNP [address] [place] [address] Supervision of high risk , antepartum*; Hypothyroidism affecting in third trimester; History of gestational diabetes; Tobacco smoking affecting in third trimester; Depression complicating , antepartum Allergies No known active allergiesdocumented as of this encounter (statuses as of 04/28/2023) Medications Medication Sig Dispensed Refills Start Date End Date Status Complete Oral Capsule Therapy Pack Take by mouth. 0 Active Ferrous Sulfate 325 (65 Fe) MG Oral Tablet (Feosol)Indication s:Antepartum anemia complicating Take 1 Tablet by mouth in the morning and 1 Tablet before bedtime. 60 Tablet 12 04/03/2023 Active Levothyroxine Sodium 100 MCG Oral Tablet (Levoxyl)Indicatio ns:Hypothyroidism affecting in third trimester Take 1 Tablet by mouth in the morning. (at least 30 min prior to breakfast or other meds). 30 Tablet 3 04/03/2023 Active Sertraline HCl 50 MG Oral Tablet (Zoloft) Take 1 Tablet by mouth in the morning. 0 09/22/2020 04/28/2023 Discontinue d(Medicatio n List Clean Up) documented as of this encounter (statuses as of 04/28/2023) Active Problems Problem Noted Date Diagnosed Date [...] be handled at the discretion of the winemaker. 88 mcg levothyroxine started at 9 wks Increased to 100 mcg at 30w4d; referral to [facility] sent History of gestational diabetes 11/05/2022 Overview: Early GTT normal Tobacco use 11/05/2022 Tobacco smoking complicating 3 Depression complicating , antepartum Overview: escobar Acquired hypothyroidism 08/05/2019 Overview: Pt states she hasn't been on meds for 2 years due to insurance. TSH 5.29, ordered synthroid 25mcg to restart 08/11/19 TSH Target Levels in per [facility] 0-14 weeks: 0.03-2.5 15-28 weeks: 0.03-3.0 28-40 weeks: 0.13-3.0 TSH(uIU/mL) Bianka Dt/Tm Resulted Value Status 11/25/19 5:02P 11/26/19 3.30 FINAL 08/10/19 10:31A 08/11/19 5.29* FINAL 06/23/17 2:53P 06/23/17 2.75 FINAL Advanced directives, counseling/discussion 06/14 Overview: No, Advance Directive brochure offered, patient declined. Estimated Date of Delivery Comme nts Yes 06/08/2023 Based on Ultraso und documented as of this encounter (statuses as of 04/28/2023) Resolved Problems Problem Noted Date Diagnosed Date Resolved Date Supervision of other normal 09/02/2019 03/17/2020 Overview: Problem Action Taken Date entered Entered by Date resolved Nutrition Provided due date letter for pt to attend [facility] 09/02/2019 Nadege Velasquez RN 09/02/2019 1st Trimester [...] or hemolytic disease of the . Multiple VOIP TECHNICIAN's on anatomy sono- resolved on f/u anatomy sono Tobacco use in 03/09/201411/2014 Overview: Smoking 10cig/day at NOB visit 08/03/14 @30wks: smoking 2cig/day INFORMATION 03/09/2014 05/07/2017 Overview: FOB and fob's brother with aortic stenosis echo (pt desires this to be in [place]) O + bloodtype; + antibody screen; direct Randal negative Patient has a history of nonspecific reactivity. 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 Per ARC report: Patient [...] as of this encounter (statuses as of 04/28/2023) Immunizations Name Administration Dates Next Due TDAP [...] have money to get more. Patient declined [place] Depression Scale Answer Date Recorded [place] Depression Scale Total 5 04/28/2023 The thought [...] Sign Reading Time Taken Comments Blood Pressure 108/62 04/28/2023 8:42 AM EDT Pulse - - Temperature - - Respiratory Rate - - Oxygen Saturation - - Inhaled Oxygen Concentration - - Weight 73.5 kg (162 lb) 04/28/2023 8:42 AM EDT Height - - Body Mass Index 24.64 03/20/2023 11:33 AM EST documented in this encounter Progress Notes * Tanisha Sun LPN - 04/28/2023 8:42 AM EDT 34w1d Denies vaginal bleeding/rom + movement No new concerns * Delma Pacheco CRNP - 04/28/2023 8:42 AM EDT 34w1d Doing well. Baby is active. Denies ctx/leaking or bleeding. Repeat CBC and TSH. Labor instructions provided. 2 week return, discussed GBS swab to be completed at that time. YONI Soliz documented in this encounter Plan of Treatment Upcoming Encounters Date Type Department Care Team (Late st Contact Info) Description 05/12/2023 9:00 AM EDT Office Visit Gynecology/Obstetrics [facility] [address] [place] [address] Tiffanie Tan PA-C [address] [place] [address] 05/19/2023 9:00 AM EDT Office Visit Gynecology/Obstetrics [facility] [address] [place] [address] Tiffanie Tan PA-C [address] [place] [address] 05/26/2023 8:45 AM EDT Office Visit Gynecology/Obstetrics [facility] [address] [facility] [place] [address] Delma Pacheco CRNP [address] [place] [address] 06/02/2023 8:45 AM EDT Office Visit Gynecology/Obstetrics [facility] [address] [place] [address] Kerry Hewitt, DNP, CNM [address] [facility] [place] [address] Scheduled Orders Name Type Priority Associated Diagnoses Orde r Schedule TSH WITH FREE T4 IF INDICATED Lab Routine Hypothyroidism affecting in third trimester Expected: 04/28/2023, Expires: 04/27/2024 CBC WITH WBC DIFFERENTIAL AND ANEMIA REFLEX WORKUP Lab Routine Supervision of high risk , antepartum Expected: 04/28/2023, Expires: 04/27/2024 Health Maintenance Due Date Last Done Comments Pneumococcal Vaccine: Pediatrics (0 to 5 Years) and At-Risk Patients (6 to 64 Years) (1 of 2 - PCV) 11/09/1999 Depression Screening 06/19/2018 06/19/2017 COVID-19 Vaccine (1 - 2022- season) 2022 Influenza Vaccine (FLU shot) (#1) 2022 TSH 03/20/2024 03/20/2023, 02/0 09/2023, 12/03/2022, Additional history exists Pap Smear [...] antepartum documented in this encounter Care Teams Room Service Food Server Relationship Specialty Start Date End Date Alice Marc MD [address] [place] [address] PCP - General Family Medicine 12/22/14 documented as of this encounter
--- OUTSIDE RECORDS SUMMARY | 2023-06-15 23:14 | External Medical Summary ---
Author Name Unknown Address Unknown Organization K01:LABORATORY [facility] [place] - [address] [place] [address] Laboratory Report Ordering Provider Test Date Status ARUNA ELIZONDO 05/16/2023 08:49:58 Final Observation Date Value Abnormality Reference (Units ) Status A.P Avanashiappa SilkCHRISTY SPECIMEN-LAV 05/16/2023 08:49:58 Freezing of extracted DNA, whole blood and/or serum. Final Performing Location LABORATORY C - [address] [place] [address]
--- OUTSIDE RECORDS SUMMARY | 2023-06-15 23:14 | External Medical Summary | Summary of Care ---
Author Name Unknown Organization [facility] Address [address] [facility] [address] [place] [address] Phone [phone] Care Team Providers Care Global Director Air And Climate Change Name Role Phone Alice Marc MD Primary Care Provider Reason for Visit * Reason Onset Date Comments Test Results 05/19/2023 Encounter Details Date Type Department Care Team (Late st Contact Info) Description 05/19/2023 Telephone Gynecology/Obstetrics [facility] [address] [place] [address] Delma Pacheco CRNP [address] [place] [id number] Test Results Allergies No known active allergiesdocumented as of [...] Active Levothyroxine Sodium 125 MCG Oral Tablet (Levoxyl)Indicatio ns:Hypothyroidism affecting in third trimester Take 1 Tablet by mouth in the morning. (at least 30 min prior to breakfast or other meds). 30 Tablet 3 05/19/2023 Active Levothyroxine Sodium 100 MCG Oral Tablet (Levoxyl)Indicatio ns:Hypothyroidism affecting in third trimester Take 1 Tablet by mouth in the morning. (at least 30 min prior to breakfast or other meds). 30 Tablet 3 04/03/2023 4 Discontinued documented as of this encounter (statuses as [...] be handled at the discretion of the singer and unloader. 88 mcg levothyroxine started at 9 wks Increased to 100 mcg at 30w4d; referral to [facility] sent History of gestational diabetes 11/05/2022 Overview: Early GTT normal Tobacco use 11/05/2022 Tobacco smoking complicating 3 Depression complicating , antepartum Overview: escobar Acquired hypothyroidism 08/05/2019 Overview: Pt states she hasn't been on meds for 2 years due to insurance. TSH 5.29, ordered synthroid 25mcg to restart 08/11/19 TSH Target Levels in per [facility] 0-14 weeks: 0.03-2.5 15-28 weeks: 0.03-3.0 28-40 [...] for pt to attend [facility] 09/02/2019 Nadege Velasquez, RN 09/02/2019 1st Trimester education Reviewed w/pt 09/02/2019 Nadege Velasquez, RN 09/02/2019 Problem Action Taken Date entered [...] or hemolytic disease of the . Multiple PROJECT INSPECTOR's on anatomy sono- resolved on f/u anatomy sono Tobacco use in 03/09/201411/2014 Overview: Smoking 10cig/day at NOB visit 08/03/14 @30wks: smoking 2cig/day INFORMATION 03/09/2014 05/07/2017 Overview: FOB and fob's brother with aortic stenosis echo (pt desires this to be in [place]) O + bloodtype; + antibody screen; direct Randal negative Patient has a history of nonspecific reactivity. 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 Per [facility] report: Patient [...] have money to get more. Patient declined [place] Depression Scale Answer Date Recorded [place] Depression Scale Total 5 04/28/2023 The thought [...] on file documented as of this encounter Miscellaneous Notes * Telephone Encounter - Chiquita Knight RN - 05/19/2023 8:38 AM EDT Spoke with pt. She is aware. She did say that she can not get to [place]. She is aware of the riskbut the cost of gas it too high. [facility]. She is aware of need to do NSt and is on her way there already. Advised to discuss with tiffanie when the Growth scan should be scheduled. * Telephone Encounter - Delma Pacheco CRNP - 05/19/2023 8:17 AM EDT Please let pt know her anemia has improved. Continue current iron rx. TSH is still too high - changing Rx for levothyroxine. Make sure she is taking it first thing in the morning on an empty stomach, separately from other meds. She was previously advised to see MFM due to uncontrolled thyroid. I still strongly advise that shesee them as uncontrolled hypothyroidism in is associated with increased risk of pregnancyloss, placental abruption, and preeclampsia. Recommend starting NSTs weekly due to this, please schedule. I would also advise a repeat growth u/s if she again declines MFM. YONI Soliz FYI since you are seeing her today. documented in this encounter Plan of Treatment Upcoming Encounters Date Type Department Care Team (Late st Contact Info) Description 05/19/2023 9:00 AM EDT Office Visit Gynecology/Obstetric s [facility] [address] [place] [address] Tiffanie Tan PA-C [address] [place] [address] Supervision of high risk , antepartum*; Hypothyroidism affecting ; History of gestational diabetes; Tobacco smoking complicating ; Depression complicating , antepartum 05/26/2023 8:45 AM EDT Office Visit Gynecology/Obstetric s [facility] [address] [place] [address] Delma Pacheco CRNP [address] [place] [address] 06/02/2023 8:45 AM EDT Office Visit Gynecology/Obstetric s [facility] [address] [place] [address] Kerry Hewitt, DNP, CNM [address] [facility] [place] [id number] Scheduled Orders Name Type Priority Associated Diagnoses Orde r Schedule US PREG FOLLOW-UP EACH FETUS Medical Imaging Routine Hypothyroidism affecting in third trimester Supervision of high risk , antepartum Expected: 05/19/2023 (Approximate), Expires: 06/17/2024 Health Maintenance Due Date Last Done Comments [...] high risk , antepartum- Primary Hypothyroidism affecting History of gestational diabetes Personal history of gestational diabetes Tobacco smoking complicating Tobacco use disorder complicating , childbirth, or the puerperium, unspecified as to episode of care or not applicable Depression complicating , antepartum Mental disorders of mother, antepartum Supervision of high risk , antepartum- Primary Hypothyroidism affecting in third trimester documented in this encounter Care Teams Global Director Air And Climate Change Relationship Specialty Start Date End Date Alice Marc MD [address] [facility] [place] [address] PCP - General Family Medicine 12/22/14 documented as of this encounter
--- OUTSIDE RECORDS SUMMARY | 2023-06-15 23:14 | External Medical Summary ---
Author Name Unknown Address Unknown Organization K01[place] [place] [address] [place] [address] Laboratory Report Ordering Provider Test Date Status ARUNA ELIZONDO 05/16/2023 08:49:58 Final Observation Date Value Abnormality Reference (Units ) Status MYCODE SPECIMEN-SST 05/16/2023 08:49:58 Freezing of extracted DNA, whole blood and/or serum. Final Performing Location [facility] [place] [address] [place] [address]
--- OUTSIDE RECORDS SUMMARY | 2023-06-15 23:14 | External Medical Summary | Summary of Care ---
Author Name Unknown Organization [facility] Address [address] [facility] [place] [address] Phone [phone] Care Team Providers Care Luggage Attendant Name Role Phone Alice Marc MD Primary Care Provider Reason for Visit * Reason Comments Return Visit Encounter Details Date Type Department Care Team (Late st Contact Info) Description 04/14/2023 3:00 PM EST Office Visit Gynecology/Obstetric s [facility] [address] [place] [address] Delma Pacheco CRNP [address] [place] [address] Supervision of high risk , antepartum*; Hypothyroidism affecting in third trimester; History of gestational diabetes; Tobacco smoking affecting in third trimester; Depression complicating , antepartum Allergies No known active allergiesdocumented as of this encounter (statuses as of 04/14/2023) Medications Medication Sig Dispensed Refills Start Date End Date Status Sertraline HCl 50 MG Oral Tablet (Zoloft) Take 1 Tablet by mouth in the morning. 0 09/22/2020 Active Complete Oral Capsule Therapy Pack Take by [...] as of this encounter (statuses as of 04/14/2023) Active Problems Problem Noted Date Diagnosed Date [...] be handled at the discretion of the senior program planner. 88 mcg levothyroxine started at 9 wks Increased to 100 mcg at 30w4d; referral to [facility] sent History of gestational diabetes 11/05/2022 Overview: Early GTT normal Tobacco use 11/05/2022 Tobacco smoking complicating 3 Depression complicating , antepartum Overview: escobar Acquired hypothyroidism 08/05/2019 Overview: Pt states she hasn't been on meds for 2 years due to insurance. TSH 5.29, ordered synthroid 25mcg to restart 08/11/19 TSH Target Levels in per [facility] 0-14 weeks: 0.03-2.5 15-28 weeks: 0.03-3.0 28-40 weeks: 0.13-3.0 TSH(uIU/mL) Bianka Dt/Tm Resulted Value Status 11/25/19 5:02P 11/26/19 3.30 FINAL 08/10/19 10:31A 08/11/19 5.29* FINAL 06/23/17 2:53P 06/23/17 2.75 FINAL Advanced directives, counseling/discussion 06/14 Overview: No, Advance Directive brochure offered, patient declined. Estimated Date of Delivery Comme nts Yes 06/08/2023 Based on Ultraso und documented as of this encounter (statuses as of 04/14/2023) Resolved Problems Problem Noted Date Diagnosed Date Resolved Date Supervision of other normal 09/02/2019 03/17/2020 Overview: Problem Action Taken Date entered Entered by Date resolved Nutrition Provided due date letter for pt to attend [facility] 09/02/2019 Nadege Velasquez, RN 09/02/2019 1st Trimester [...] or hemolytic disease of the . Multiple MOBILE TESTER's on anatomy sono- resolved on f/u anatomy sono Tobacco use in 03/09/201411/2014 Overview: Smoking 10cig/day at NOB visit 08/03/14 @30wks: smoking 2cig/day INFORMATION 03/09/2014 05/07/2017 Overview: FOB and fob's brother with aortic stenosis echo (pt desires this to be in [place]) O + bloodtype; + antibody screen; direct Randal negative Patient has a history of nonspecific reactivity. However current workup by the [employer] reveals Anti SdA. Per [facility]C report: Patient [...] as of this encounter (statuses as of 04/14/2023) Immunizations Name Administration Dates Next Due TDAP [...] have money to get more. Patient declined [place] Depression Scale Answer Date Recorded [place] Depression Scale Total 4 03/20/2023 The thought of harming myself has occurred to me . Never 03/20/2023 Estimated Date of Delivery Comme nts Yes [...] Sign Reading Time Taken Comments Blood Pressure 100/60 04/14/2023 2:33 PM EST Pulse - - Temperature - - Respiratory Rate - - Oxygen Saturation - - Inhaled Oxygen Concentration - - Weight 71.2 kg (157 lb) 04/14/2023 2:33 PM EST Height - - Body Mass Index 23.88 03/20/2023 11:33 AM EST documented in this encounter Progress Notes * Delma Pacheco CRNP - 04/14/2023 2:33 PM EST 32w1d Thyroid medication changed 2 weeks ago; pt was unable to travel for [facility] consult. Growth scan today,final report pending. Per preliminary: Wt: 1859gm, MADELYN: 12.7 Baby is moving well, no ctx/leaking/bleeding. Planning for BTL . 2 week return YONI Soliz documented in this encounter Nursing Notes * Tanisha Sun LPN - 04/14/2023 2:30 PM EST 32w1d Denies vaginal bleeding/rom + movement No new concerns Growth US today: Measuring 32w1d Wt: 1859gm MADELYN: 12.7 HR: 149 documented in this encounter Plan of Treatment Upcoming Encounters Date Type Department Care Team (Late st Contact Info) Description 04/28/2023 8:45 AM EDT Office Visit Gynecology/Obstetrics [facility] [address] [place] [address] Delma Pacheco CRNP [address] [place] [address] 05/12/2023 9:00 AM EDT Office Visit Gynecology/Obstetrics [facility] [address] [place] [address] Tiffanie Tan PA-C [address] [place] [address] 05/19/2023 9:00 AM EDT Office Visit Gynecology/Obstetrics [facility] [address] [place] [address] Tiffanie Tan PA-C [address] [place], [place] [address] 05/26/2023 8:45 AM EDT Office Visit Gynecology/Obst[facility] [address] [place] [address] Delma Pacheco CRNP [address] [place] [address] 06/02/2023 8:45 AM EDT Office Visit Gynecology[facility] [address] [facility] [address] Kerry Hewitt, DNP, CNM [address] [facility] [place] [address] Health Maintenance Due Date Last Done Comments Pneumococcal Vaccine: Pediatrics (0 to 5 Years) and At-Risk Patients (6 to 64 Years) (1 of 2 - PCV) 11/09/1999 Depression Screening 06/19/2018 06/19/2017 COVID-19 Vaccine ( - season) 2022 Influenza Vaccine (FLU shot) (#1) [...] antepartum documented in this encounter Care Teams Luggage Attendant Relationship Specialty Start Date End Date Alice Marc MD [address] [place] [address] PCP - General Family Medicine 12/22/14 documented as of this encounter
--- OUTSIDE RECORDS SUMMARY | 2023-06-15 23:14 | External Medical Summary | Summary of Care ---
Author Name Unknown Organization [facility] Address [address] [facility] [place] [address] Phone [phone] Care Team Providers Care Supervisor Screen Making Name Role Phone Alice Marc MD Primary Care Provider Encounter Details Date Type Department Care Team (Late st Contact Info) Description 05/06/2023 Orders Only PATIENT PORTAL DO NOT DELETE THIS DEPT USED BY [place] [id number] Allergies No known active allergiesdocumented as of this encounter (statuses as of 05/06/2023) Medications Medication Sig Dispensed Refills Start Date [...] as of this encounter (statuses as of 05/06/2023) Active Problems Problem Noted Date Diagnosed Date [...] be handled at the discretion of the military science teacher. 88 mcg levothyroxine started at 9 wks Increased to 100 mcg at 30w4d; referral to [facility] sent History of gestational diabetes [...] as of this encounter (statuses as of 05/06/2023) Resolved Problems Problem Noted Date Diagnosed Date [...] hemolytic disease of the . Multiple DIRECTOR PAID MEDIA's on anatomy sono- resolved on f/u anatomy sono Tobacco use in 03/09/201411/2014 Overview: Smoking 10cig/day at NOB visit 08/03/14 @30wks: smoking 2cig/day INFORMATION 03/09/2014 05/07/2017 Overview: FOB and fob's brother with aortic stenosis echo (pt desires this to be in [place]) O + bloodtype; + antibody screen; direct Randal negative Patient has a history of nonspecific reactivity. 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 Per ARC report: Patient [...] as of this encounter (statuses as of 05/06/2023) Immunizations Name Administration Dates Next Due TDAP [...] have money to get more. Patient declined [place] Depression Scale Answer Date Recorded [place] Depression Scale Total 5 04/28/2023 The thought [...] 9:00 AM EDT Office Visit Gynecology/Obstetrics [facility] [address] [place] [address] Tiffanie Tan PA-C [address] [place] [address] 05/19/2023 9:00 AM EDT Office Visit Gynecology/Obstetrics [facility] [address] [place] [address] Tiffanie Tan PA-C [address] [place] [address] 05/26/2023 8:45 AM EDT Office Visit Gynecology/Obstetrics [facility] [address] [place] [facility] [address] Delma Pacheco CRNP [address] [place] [address] 06/02/2023 8:45 AM EDT Office Visit Gynecology/Obstetrics [facility] [address] [place] [address] Kerry Hewitt, DNP, CNM [address] [place] [id number] Health Maintenance Due Date Last Done Comments Pneumococcal Vaccine: Pediatrics (0 to 5 Years) and At-Risk Patients (6 to 64 Years) (1 of 2 - PCV) 11/09/1999 Depression Screening 06/19/2018 06/19/2017 COVID-19 Vaccine ( - 2022- season) 2022 Influenza Vaccine (FLU shot) (#1) 2022 TSH 03/20/2024 03/20/2023, 09/2023, 12/03/2022, Additional history [...] Not on filedocumented as of this encounter Care Teams Supervisor Screen Making Relationship Specialty Start Date End Date Alice Marc MD [address] [place] [address] PCP - General Family Medicine 12/22/14 documented as of this encounter
--- OUTSIDE RECORDS SUMMARY | 2023-06-15 23:14 | External Medical Summary | Summary of Care ---
Author Name Unknown Organization [facility] Address [address] [facility] [address] [place] [address] Phone [phone] Care Team Providers Care Form Tamping Machine Operator Name Role Phone Alice Marc MD Primary Care Provider Reason for Visit * Reason Onset Date Comments Test Results 05/19/2023 Encounter Details Date Type Department Care Team (Late st Contact Info) Description 05/19/2023 Telephone Gynecology/Obstetrics [facility] [address] [place] [address] Delma Pacheco CRNP [address] [place] [address] Test Results Allergies No known active allergiesdocumented [...] be handled at the discretion of the executive communications manager. 88 mcg levothyroxine started at 9 wks Increased to 100 mcg at 30w4d; referral to [facility] sent History of gestational diabetes 11/05/2022 Overview: Early GTT normal Tobacco use 11/05/2022 Tobacco smoking complicating 3 Depression complicating , antepartum Overview: escobar Acquired hypothyroidism 08/05/2019 Overview: Pt states she hasn't been on meds for 2 years due to insurance. TSH 5.29, ordered synthroid 25mcg to restart 08/11/19 TSH Target Levels in per [facility] 0-14 weeks: 0.03-2.5 15-28 weeks: 0.03-3.0 [...] or hemolytic disease of the . Multiple BOAT BUFFER PLASTIC's on anatomy sono- resolved on f/u anatomy sono Tobacco use in 03/09/201411/2014 Overview: Smoking 10cig/day at NOB visit 08/03/14 @30wks: smoking 2cig/day INFORMATION 03/09/2014 05/07/2017 Overview: FOB and fob's brother with aortic stenosis echo (pt desires this to be in [place]) O + bloodtype; + antibody screen; direct Randal negative Patient has a history of nonspecific reactivity. 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 Per ARC report: Patient [...] 05/19/2023) Immunizations Name Administration Dates Next Due DTP/HIB (Tetramune) 02/13/1995, 5,04/02/1994, 994 DTaP Dipth/Tet/Acell Pertussis (Infanrix), Peds 11/24/1997 Hepatitis B, 0-19 yrs 06/04/1994,01/21/1994,10/12 MMR - Measles/Mumps/Rubella Vaccine 11/24/1997,1 OPV - Polio Virus Vaccine (Oral) 998,06/04/1994,04/02/1994, 99 TB Roxanne Test 11/24/1997,11/12/1995,11/12/1994 TDAP (age 10 and older)(Boostrix) 11/25/2019, TDAP (age 11 and older)(Adacel) 11/20/2005 Varicella Vaccine (Chicken Pox) 11/12/1994 documented as of this encounter Social History [...] have money to get more. Patient declined [place] Depression Scale Answer Date Recorded [place] Depression Scale Total 5 04/28/2023 The thought [...] encounter Miscellaneous Notes * Telephone Encounter - Tiffanie Tan PA-C - 05/19/2023 12:04 PM EDT Saw patient this morning. Discussed risk with her as well. She declined MFM referral when I discussed with her. NST done today. Plan made to continue once weekly given uncontrolled hypothyroidism. Growth to be done as soon as possible. * Telephone Encounter - Chiquita Knight RN - 05/19/2023 8:38 AM EDT Spoke with pt. She is aware. She did say that she can not get to [place]. She is aware of the riskbut the cost of gas it too high. I advised pt that she could use [facility] transportation but she declines. She is aware [...] Description 05/19/2023 12:45 PM EDT Imaging Radiology [address] [place] [address] 05/28/2023 1:00 PM EDT Office Visit Gynecology/Obstetrics [facility] [address] [place] [address] Delma Pacheco CRNP [address] [place] [address] Jennifer [facility] [address] [place] [address] 06/04/2023 1:45 PM EDT Office Visit Gynecology/Obstetrics [facility] [address] [place] [address] Elva Duvall CRNP [address] [place] [address] [place] [facility] [address] [place] [address] Scheduled Orders Name Type Priority Associated Diagnoses [...] trimester documented in this encounter Care Teams Form Tamping Machine Operator Relationship Specialty Start Date End Date Alice Marc MD [address] [facility] [place] [address] PCP - General Family Medicine 12/22/14 documented as of this encounter
--- OUTSIDE RECORDS SUMMARY | 2023-06-15 23:14 | External Medical Summary | Summary of Care ---
Author Name Unknown Organization [facility] Address [address] [facility] [place] [address] Phone [phone] Care Team Providers Care Package Lift Operator Name Role Phone Alice Marc MD Primary Care Provider Reason for Visit * Reason Comments Return Visit Encounter Details Date Type Department Care Team (Late st Contact Info) Description 05/12/2023 9:00 AM EDT Office Visit Gynecology/Obstetric s [facility] [address] [place] [address] Tiffanie Tan PA-C [address] [place] [address] Supervision of high risk , antepartum*; Hypothyroidism [...] be handled at the discretion of the clock assembler. 88 mcg levothyroxine started at 9 wks Increased to 100 mcg at 30w4d; referral to [facility] sent History of gestational diabetes 11/05/2022 [...] resolved 3rd trimester education reviewed w/pt 11/25/2019 Nadgee Velasquez RN 11/25/2019 Problem Action Taken Date [...] having any current needs or questions 02/25/2017 aNdege Velasquez RN 02/25/17 Problem Action Taken Date [...] or hemolytic disease of the . Multiple CURB SUPERVISOR's on anatomy sono- resolved on f/u anatomy sono Tobacco use in 03/09/201411/2014 Overview: Smoking 10cig/day at NOB visit 08/03/14 @30wks: smoking 2cig/day INFORMATION 03/09/2014 05/07/2017 Overview: FOB and fob's brother with aortic stenosis echo (pt desires this to be in [place]) O + bloodtype; + antibody screen; direct Randal negative Patient has a history of nonspecific reactivity. 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 Per ARC report: Patient [...] have money to get more. Patient declined [place] Depression Scale Answer Date Recorded [place] Depression Scale Total 5 04/28/2023 The thought [...] 05/19/2023 9:00 AM EDT Office Visit Gynecology/Obstetrics [facility] [address] [place] [address] Tiffanie Tan PA-C [address] [place] [address] 05/26/2023 8:45 AM EDT Office Visit Gynecology/Obstetrics [facility] [address] [place] [address] Delma Pacheco CRNP [address] [place] [address] 06/02/2023 8:45 AM EDT Office Visit Gynecology/Obstetrics [facility] [address] [place] [address] Kerry Hewitt, DNP, CNM [address] [place] [address] Pending Results Name Type Priority Associated Diagnoses Date /Time GROUP B STREP CULTURE/PCR Lab Routine Supervision of high risk , antepartum 05/12/2023 9:34 AM EDT Health Maintenance Due Date Last Done Comments [...] antepartum documented in this encounter Care Teams Package Lift Operator Relationship Specialty Start Date End Date Alice Marc MD [address] [place], [place] [address] [address] PCP - General Family Medicine 12/22/14 documented as of this encounter
--- OUTSIDE RECORDS SUMMARY | 2023-06-15 23:14 | External Medical Summary | Summary of Care ---
Author Name Unknown Organization [facility] Address [address] [facility] [place] [address] Phone [phone] Care Team Providers Care Dredge Hand Name Role Phone Alice Marc MD Primary Care Provider Encounter Details Date Type Department Care Team (Late st Contact Info) Description 05/19/2023 Telephone [facility] [address] [place] [address] Tiffanie Tan PA-C [address] [place] [address] Allergies No known active allergiesdocumented as of this encounter (statuses as of 05/23/2023) Medications Medication Sig Dispensed Refills Start Date [...] as of this encounter (statuses as of 05/23/2023) Active Problems Problem Noted Date Diagnosed Date Supervision of high risk , antepartum 0 11/05/2022 Hypothyroidism affecting 11/05/2022 Overview: TSH Results: Lab Results Component Value Date/Time TSH - [facility] 3.57 03/20/2023 12:35 PM TSH - [facility] [...] be handled at the discretion of the routing machine operator. 88 mcg levothyroxine started at 9 wks Increased to 100 mcg at 30w4d; referral to [facility] sent History of gestational diabetes 11/05/2022 [...] as of this encounter (statuses as of 05/23/2023) Resolved Problems Problem Noted Date Diagnosed Date [...] RN 01/31/2017 nutrition Declines WIC 01/31/2017 Chiquita Knigth RN 01/31/2017 education declines needs for home [...] or hemolytic disease of the . Multiple YARDAGE CONTROL OPERATOR FORMING's on anatomy sono- resolved on f/u anatomy sono Tobacco use in 03/09/201411/2014 Overview: Smoking 10cig/day at NOB visit 08/03/14 @30wks: smoking 2cig/day INFORMATION 03/09/2014 05/07/2017 Overview: FOB and fob's brother with aortic stenosis echo (pt desires this to be in [place]) O + bloodtype; + antibody screen; direct Randal negative Patient has a history of nonspecific reactivity. 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 Per ARC report: Patient [...] as of this encounter (statuses as of 05/23/2023) Immunizations Name Administration Dates Next Due TDAP [...] have money to get more. Patient declined [place] Depression Scale Answer Date Recorded [place] Depression Scale Total 5 04/28/2023 The thought [...] encounter Miscellaneous Notes * Telephone Encounter - Chrissy Peters RN - 05/20/2023 9:08 AM EDT Attempted to call patient. No answer, unable to leave VM due to mailbox full. * Telephone Encounter - Tiffanie Tan PA-C - 05/20/2023 8:53 AM EDT Please disregard previous message as I have received advice back from [facility] Re: Dr. Mcclain since then. Please inform her of ultrasound results. Normal growth. MADELYN is low, does not meet oligohydramnios criteria. [facility] recommended repeat MADELYN check with ultrasound in 1 week. I placed order so she could be scheduled for 05/26/2023. In regards to thyroid medication. [facility] did not see the need for continued NST at this time. We should recheck TSH at 6 weeks as we likely will need to change dose. Therefore can continue routine OB care with repeat ultrasound in 1 week. * Telephone Encounter - Chiquita Knight RN - 05/19/2023 1:59 PM EDT Attempted to call pt. NA. Mailbox is full and not accepting messages. MyG sent to pt. * Telephone Encounter - Tiffanie Tan PA-C - 05/19/2023 1:38 PM EDT Please make patient aware of preliminary findings suggesting low level of MADELYN. Not oligohydramnios but should follow. She was not complaining of LOF today -- please confirm with her no concerns for LOF. I placed order for BPP and MADELYN check to have in 2 days. She will need scheduled. Reviewed with Dr. [place] in office today. Also sent ask a doc to [facility] for further recommendations regarding timing of delivery and delivery location given thyroid issues and ultrasound findings. * Telephone Encounter - Chrissy Peters RN - 05/19/2023 1:15 PM EDT Received call from [facility] at [place]. Patient had Growth US there today after visit. LiveLeaf tech FacishareidalmisVungle patient MADELYN was a 6. Growth was a little less than 5%. Cynthia reports growth was okay. She wanted to let a provider know about the low MADELYN prior to the report coming back. Please advise. [place] patient today, Delma Ordered growth US. documented in this encounter Plan of Treatment Upcoming Encounters Date Type Department Care Team (Late st Contact Info) Description 05/28/2023 1:00 PM EDT Office Visit Gynecology/Obstetrics [facility] [address] [place] [address] Delma Pacheco CRNP [address] [place] [address] [place], Non Stress Tests Yovany [address] [place] [address] 06/04/2023 1:45 PM EDT Office Visit Gynecology/Obstetrics [facility] [address] [place] [address] Elva Duvall CRNP [address] [place] [address] [place] Non Stress Tests Yovany [address] [place] [address] Scheduled Orders Name Type Priority Associated Diagnoses Orde r Schedule US PREG LIMITED 1 OR MORE FETUSES Medical Imaging Routine MADELYN (amniotic fluid index) borderline low Expected: 05/26/2023, Expires: 06/18/2024 Health Maintenance Due Date Last Done Comments Pneumococcal Vaccine: Pediatrics (0 to 5 Years) and At-Risk Patients (6 to 64 Years) (1 of 2 - PCV) 11/09/1999 COVID-19 Vaccine ( - 2022-24 season) 2022 Influenza Vaccine (FLU shot) (Season Ended) 2023 TSH 05/15/2024 05/16/2023, 0209/2023, 03/20/2023, Additional history exists Pap Smear 11/05/2025 [...] as of this encounter Visit Diagnoses Diagnosis MADELYN (amniotic fluid index) borderline low- Primary Nonspecific abnormal finding in amniotic fluid Hypothyroidism affecting in third trimester documented in this encounter Care Teams Dredge Hand Relationship Specialty Start Date End Date Alice Marc MD [address] [facility] [place] [address] PCP - General Family Medicine 12/22/14 documented as of this encounter
--- OUTSIDE RECORDS SUMMARY | 2023-06-15 23:14 | External Medical Summary | Summary of Care ---
Author Name Unknown Organization [facility] Address [address] [facility] [place] [address] Phone [phone] Care Team Providers Care Retread Technician Name Role Phone Alice Marc MD Primary Care Provider Reason for Visit * Reason Comments Outpatient Testing Encounter Details Date Type Department Care Team (Late st Contact Info) Description 05/16/2023 8:50 AM EDT Laboratory Laboratory [address] [place] [id number] [place] [address] [employer] Other*[id number]; Hypothyroidism affecting in third trimester; Supervision of high risk , antepartum Allergies No known active allergiesdocumented as of this encounter (statuses as of 05/16/2023) Medications Medication Sig Dispensed Refills Start Date [...] as of this encounter (statuses as of 05/16/2023) Active Problems Problem Noted Date Diagnosed Date [...] be handled at the discretion of the engineer intern. 88 mcg levothyroxine started at 9 wks Increased to 100 mcg at 30w4d; referral to [facility] sent History of gestational diabetes 11/05/2022 Overview: [...] as of this encounter (statuses as of 05/16/2023) Resolved Problems Problem Noted Date Diagnosed Date [...] or hemolytic disease of the . Multiple SHOPPING INVESTIGATOR's on anatomy sono- resolved on f/u anatomy sono Tobacco use in 03/09/201411/2014 Overview: Smoking 10cig/day at NOB visit 08/03/14 @30wks: smoking 2cig/day INFORMATION 03/09/2014 05/07/2017 Overview: FOB and fob's brother with aortic stenosis echo (pt desires this to be in [place]) O + bloodtype; + antibody screen; direct Randal negative Patient has a history of nonspecific reactivity. 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 Per ARC report: Patient [...] as of this encounter (statuses as of 05/16/2023) Immunizations Name Administration Dates Next Due TDAP [...] have money to get more. Patient declined [place] Depression Scale Answer Date Recorded [place] Depression Scale Total 5 04/28/2023 The thought [...] 05/19/2023 9:00 AM EDT Office Visit Gynecology/Obstetrics [facility] [address] [place] [address] Tiffanie Tan PA-C [address] [place] [address] 05/26/2023 8:45 AM EDT Office Visit Gynecology/Obstetrics [facility] [address] [place], [place] [address] Delma Pacheco CRNP [address] [place], [place] [address] 06/02/2023 8:45 AM EDT Office Visit Gynecology/Obstetrics [facility] [address] [facility] [place], [place] [address] Kerry Hewitt, BETO, CN [address] [facility] [place], [place] [address] Pending Results Name Type Priority Associated Diagnoses Date /Time MYCODE INITIAL ADULT Lab Routine [employer] Other*[id number] 05/16/2023 8:49 AM EDT TSH WITH FREE T4 IF INDICATED Lab Routine Hypothyroidism affecting in third trimester 05/16/2023 8:49 AM EDT CBC WITH WBC DIFFERENTIAL AND ANEMIA REFLEX WORKUP Lab Routine Supervision of high risk , antepartum 05/16/2023 8:49 AM EDT MYCODE INITIAL ADULT-PINK Lab Routine [employer] Other*[id number] 05/16/2023 8:49 AM EDT MYCODE SST1 Lab Routine [employer] Other*[id number] 05/16/2023 8:49 AM EDT MYCODE SST2 Lab Routine [employer] Other*[id number] 05/16/2023 8:49 AM EDT ANEMIA CBC Lab Routine Supervision of high risk , antepartum 05/16/2023 8:49 AM EDT DIFFERENTIAL, AUTOMATED Lab Routine Supervision of high risk , antepartum 05/16/2023 8:49 AM EDT ANEMIA REFLEX CHEMISTRY HOLD Lab Routine Supervision of high risk , antepartum 05/16/2023 8:49 AM EDT Health Maintenance Due Date Last Done Comments Pneumococcal Vaccine: Pediatrics (0 to 5 Years) and At-Risk Patients (6 to 64 Years) (1 of 2 - PCV) 11/09/1999 Depression Screening 06/19/2018 06/19/2017 COVID-19 Vaccine (1 - 2022-24 season) 2022 Influenza Vaccine (FLU shot) (Season Ended) 2023 TSH 03/20/2024 03/20/2023, /0 09/2023, 12/03/2022, Additional history exists Pap Smear [...] this encounter Visit Diagnoses Diagnosis [employer] Other*[id number] Hypothyroidism affecting in third trimester Supervision of high risk , antepartum documented in this encounter Care Teams Retread Technician Relationship Specialty Start Date End Date Alice Marc MD [address] [facility] [place] [address] PCP - General Family Medicine 12/22/14 documented as of this encounter
--- OUTSIDE RECORDS SUMMARY | 2023-06-15 23:14 | External Medical Summary | Summary of Care ---
Author Name Unknown Organization [facility] Address [address] [facility] [place] [address] Phone [phone] Care Team Providers Care Director Of Hotel Operations Name Role Phone Alice Marc MD Primary Care Provider Reason for Visit * Reason Onset Date Comments Appointment 04/03/2023 Encounter Details Date Type Department Care Team (Late st Contact Info) Description 04/03/2023 Telephone [facility] [address] [place] [address] Delma Pacheco CRNP [address] [place] [address] Appointment Allergies No known active allergiesdocumented as of this encounter (statuses as of 04/22/2023) Medications Medication Sig Dispensed Refills Start Date [...] as of this encounter (statuses as of 04/22/2023) Active Problems Problem Noted Date Diagnosed Date [...] be handled at the discretion of the manager intensive care unit. 88 mcg levothyroxine started at 9 wks [...] as of this encounter (statuses as of 04/22/2023) Resolved Problems Problem Noted Date Diagnosed Date [...] or hemolytic disease of the . Multiple MANAGER CUSTOMER's on anatomy sono- resolved on f/u anatomy sono Tobacco use in 03/09/201411/2014 Overview: Smoking 10cig/day at NOB visit 08/03/14 @30wks: smoking 2cig/day INFORMATION 03/09/2014 05/07/2017 Overview: FOB and fob's brother with aortic stenosis echo (pt desires this to be in [place]) O + bloodtype; + antibody screen; direct Randal negative Patient has a history of nonspecific reactivity. 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 Per ARC report: Patient [...] as of this encounter (statuses as of 04/22/2023) Immunizations Name Administration Dates Next Due TDAP [...] have money to get more. Patient declined [place] Depression Scale Answer Date Recorded [place] Depression Scale Total 4 03/20/2023 The thought [...] encounter Miscellaneous Notes * Telephone Encounter - Jane Fay MED ASSIST - 04/03/2023 1:43 PM EST Appts scheduled, MyG sent. * Telephone Encounter - Agnieszka Berg OSA - 04/03/2023 1:09 PM EST Patient needs to return in 2 weeks but I do not see anything for 3 weeks. Also needs to schedule the ultrasound for at the same time. Please call patient to schedule. documented in this encounter Plan of Treatment Upcoming Encounters Date Type Department Care Team (Late st Contact Info) Description 04/28/2023 8:45 AM EDT Office Visit Gynecology/Obst[facility]s [facility] [address] [place] [address] Delma Pacheco CRNP [address] [place] [address] 05/12/2023 9:00 AM EDT Office Visit Gynecology/[facility] [address] [place] [address] Tiffanie Tan PA-C [address] [place] [address] 05/19/2023 9:00 AM EDT Office Visit Gynecology/Obst[facility]s [facility] [address] [place] [address] Tiffanie Tan PA-C [address] [place] [address] 05/26/2023 8:45 AM EDT Office Visit Gynecology/Obst[facility]s [facility] [address] [place] [address] Delma Pacheco CRNP [address] [place] [address] 06/02/2023 8:45 AM EDT [facility] [address] [place] [address] Kerry Hewitt, DNP, CNM [address] [place] [address] Health Maintenance Due Date Last Done Comments [...] filedocumented as of this encounter Care Teams Director Of Hotel Operations Relationship Specialty Start Date End Date Alice Marc MD [address] [facility], [place] [address] PCP - General Family Medicine 12/22/14 documented as of this encounter
--- OUTSIDE RECORDS SUMMARY | 2023-06-15 23:14 | External Medical Summary ---
Author Name Unknown Address Unknown Organization K01:LABORATORY [facility] [place] - [address] [place] [address] Laboratory Report Ordering Provider Test Date Status SHAHANABACKER 05/16/2023 08:49:58 Final Observation Date Value Abnormality Reference (Units ) Status T4, Free 05/16/2023 08:49:58 0.8 Below low normal 0.9 -1.7 (ng/dL) Final Performing Location LABORATORY C - [address] [place] [address]
--- OUTSIDE RECORDS SUMMARY | 2023-06-15 23:14 | External Medical Summary ---
Author Name Unknown Address Unknown Organization [id number][place] [facility] [place] [address] [place] [address] Laboratory Report Ordering Provider Test Date Status DANIEL HARKINS 05/16/2023 08:49:58 Final Observation Date Value Abnormality Reference (Units ) Status TSH 05/16/2023 08:49:58 6.41 Above high normal 0. 27-4.20 (uIU/mL) Final Performing Location [place] [facility] [place] [address] [place] [address]
--- OUTSIDE RECORDS SUMMARY | 2023-06-15 23:14 | External Medical Summary | Summary of Care ---
Author Name Unknown Organization [facility] Address [address] [facility] [place] [address] Phone [phone] Care Team Providers Care Tenter Feeder Name Role Phone Alice Marc MD Primary Care Provider Reason for Visit * Reason Comments Return Visit Encounter Details Date Type Department Care Team (Late st Contact Info) Description 04/14/2023 3:00 PM EST Office Visit [facility]necology[facility]st[facility] s [facility] [address] [place] [address] Delma Pacheco CRNP [address] [place] [address] Supervision of high risk , antepartum*; Hypothyroidism [...] be handled at the discretion of the tight rope walker. 88 mcg levothyroxine started at 9 wks Increased to 100 mcg at 30w4d; referral to [facility] sent History of gestational diabetes 11/05/2022 Overview: Early GTT normal Tobacco use 11/05/2022 Tobacco smoking complicating 3 Depression complicating , antepartum Overview: escobar Acquired hypothyroidism 08/05/2019 Overview: Pt states she hasn't been on meds for 2 years due to insurance. TSH 5.29, ordered synthroid 25mcg to restart 08/11/19 TSH Target Levels in per [facility] 0-14 weeks: 0.03-2.5 15-28 weeks: [...] due date letter for pt to attend [facility] 09/02/2019 Nadege Velasquez, RN 09/02/2019 1st Trimester [...] or hemolytic disease of the . Multiple ASIAN ART CURATOR's on anatomy sono- resolved on f/u anatomy sono Tobacco use in 03/09/201411/2014 Overview: Smoking 10cig/day at NOB visit 08/03/14 @30wks: smoking 2cig/day INFORMATION 03/09/2014 05/07/2017 Overview: FOB and fob's brother with aortic stenosis echo (pt desires this to be in [place]) O + bloodtype; + antibody screen; direct Randal negative Patient has a history of nonspecific reactivity. 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 Per ARC report: Patient [...] have money to get more. Patient declined [place] Depression Scale Answer Date Recorded [place] Depression Scale Total 4 03/20/2023 The [...] ago; pt was unable to travel for [facility] consult. Growth scan today,final report pending. Per [...] documented in this encounter Plan of Treatment Health Maintenance Due Date Last Done Comments Pneumococcal Vaccine: Pediatrics (0 to 5 Years) and At-Risk Patients (6 to 64 Years) (1 of 2 - PCV) 11/09/1999 Depression Screening 06/19/2018 06/19/2017 COVID-19 Vaccine (1 - 2022-24 season) 2022 Influenza Vaccine (FLU shot) (#1) 2022 TSH 03/20/2024 03/20/2023, 02/0 09/2023, 12/03/2022, Additional history exists Pap Smear 11/05/2025 11/05/2022, 06/2 06/2019, 11/16/2014 DTaP,Tdap,and Td Vaccines (9 - Td [...] antepartum documented in this encounter Care Teams Tenter Feeder Relationship Specialty Start Date End Date Alice Marc MD [address] [place] [address] PCP - General Family Medicine 12/22/14 documented as of this encounter
--- OUTSIDE RECORDS SUMMARY | 2023-06-15 23:14 | External Medical Summary | Summary of Care ---
Author Name Unknown Organization [facility] Address [address] [facility] [place] [address] Phone [phone] Care Team Providers Care Wet Cleaner Machine Name Role Phone Alice Marc MD Primary Care Provider Encounter Details Date Type Department Care Team (Late st Contact Info) Description 05/19/2023 Telephone [facility] [address] [place] [address] Tiffanie Tan PA-C [address] [place] [address] Allergies No known active allergiesdocumented as of this encounter (statuses as of 05/20/2023) Medications Medication Sig Dispensed Refills Start Date [...] as of this encounter (statuses as of 05/20/2023) Active Problems Problem Noted Date Diagnosed Date Supervision of high risk , antepartum 0 11/05/2022 Hypothyroidism affecting 11/05/2022 Overview: TSH Results: Lab Results Component Value Date/Time TSH - [facility] 3.57 03/20/2023 12:35 PM TSH [...] be handled at the discretion of the artist's representative. 88 mcg levothyroxine started at 9 wks Increased to 100 mcg at 30w4d; referral to [facility] sent History of gestational diabetes 11/05/2022 [...] as of this encounter (statuses as of 05/20/2023) Resolved Problems Problem Noted Date Diagnosed Date [...] or hemolytic disease of the . Multiple FORMULA TECHNICIAN's on anatomy sono- resolved on f/u anatomy sono Tobacco use in 03/09/201411/2014 Overview: Smoking 10cig/day at NOB visit 08/03/14 @30wks: smoking 2cig/day INFORMATION 03/09/2014 05/07/2017 Overview: FOB and fob's brother with aortic stenosis echo (pt desires this to be in [place]) O + bloodtype; + antibody screen; direct Randal negative Patient has a history of nonspecific reactivity. 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 Per ARC report: Patient [...] as of this encounter (statuses as of 05/20/2023) Immunizations Name Administration Dates Next Due TDAP [...] have money to get more. Patient declined [place] Depression Scale Answer Date Recorded [place] Depression Scale Total 5 04/28/2023 The thought [...] as I have received advice back from [facility] Re: Dr. Mcclain since then. Please inform her of ultrasound results. Normal growth. MADELYN is low, does not meet oligohydramnios criteria. [facility] recommended repeat MADELYN check with ultrasound in 1 week. I placed order so she could be scheduled for 05/26/2023. In regards to thyroid medication. [facility] did not see the need for continued [...] today. Also sent ask a doc to [facility] for further recommendations regarding timing of delivery and delivery location given thyroid issues and ultrasound findings. * Telephone Encounter - Chrissy Peters RN - 05/19/2023 1:15 PM EDT Received call from [facility] at [place]. Patient had Growth US there today after visit. [employer] tech [employer] Knock[employer] patient MADELYN was a 6. Growth was [...] Gynecology/Obstetrics [facility] [address] [place] [address] Delma Pacheco CRNP [address] [place] [address] [place], Non Stress Tests Yovany [address] [place] [address] 06/04/2023 1:45 PM EDT Office Visit Gynecology/Obstetrics [facility] [address] [place] [address] Elva Duvall CRNP [address] [place] [address] [place] Non Stress Tests Yovany [address] [place] [address] Scheduled Orders Name Type Priority Associated Diagnoses [...] trimester documented in this encounter Care Teams Wet Cleaner Machine Relationship Specialty Start Date End Date Alice Marc MD [address] [facility] [place] [address] PCP - General Family Medicine 12/22/14 documented as of this encounter
--- OUTSIDE RECORDS SUMMARY | 2023-06-15 23:14 | External Medical Summary ---
Author Name Unknown Address Unknown Organization K01:[place] [facility] [place] [address] [facility] [address] Laboratory Report Ordering Provider Test Date Status ABRAHAM CHRISTIANSON 05/12/2023 09:34:22 Final Observation Date Value Abnormality Reference (Units ) Status Streptococcus agalactiae DNA [Presence] in Specimen by BILLY with probe detection 05/12/2023 09:34:22 Negative Negative Final No Group B Streptococcus det ected by culture-enhanced PCR (amplified probe).
The collection of vaginal/rectal swab specimen combinations (FDA approved specimen type) is optimal for the detection of Group B Streptococcus. Single source collection (vaginal only or rectal only) or alternate specimen sources may lead to false negative results. Performing Location [facility] [place] [address] [facility] [facility] [address] [facility] [address]
--- OUTSIDE RECORDS SUMMARY | 2023-06-15 23:14 | External Medical Summary | Summary of Care ---
Author Name Unknown Organization [facility] Address [address] [facility] [place] [address] Phone [phone] Care Team Providers Care Fee Clerk Name Role Phone Alice Marc MD Primary Care Provider Encounter Details Date Type Department Care Team (Late st Contact Info) Description 05/19/2023 Telephone Gynecology/Obstetrics [facility] Moody [address] [place] [address] Tiffanie Tan PA-C [address] [place] [phone] Allergies No known active allergiesdocumented as of [...] Lab Results Component Value Date/Time TSH - [facility] 3.57 03/20/2023 12:35 PM TSH - [facility] [...] be handled at the discretion of the toy painter. 88 mcg levothyroxine started at 9 wks [...] or hemolytic disease of the . Multiple RUG SCRATCHER's on anatomy sono- resolved on f/u anatomy sono Tobacco use in 03/09/201411/2014 Overview: Smoking 10cig/day at NOB visit 08/03/14 @30wks: smoking 2cig/day INFORMATION 03/09/2014 05/07/2017 Overview: FOB and fob's brother with aortic stenosis echo (pt desires this to be in [place]) O + bloodtype; + antibody screen; direct Randal negative Patient has a history of nonspecific reactivity. 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 Per [facility] report: Patient [...] 05/23/2023) Immunizations Name Administration Dates Next Due DTP/HIB (Tetramune) 02/13/1995, 5,04/02/1994, 994 DTaP Dipth/Tet/Acell Pertussis (Infanrix), Peds 11/24/1997 Hepatitis B, 0-19 yrs 06/04/1994,01/21/1994,10/12 MMR - Measles/Mumps/Rubella Vaccine 11/24/1997,1 OPV - Polio Virus Vaccine (Oral) 998,06/04/1994,04/02/1994, 994 TB Roxanne Test 11/24/1997,11/12/1995,11/12/1994 TDAP (age 10 [...] have money to get more. Patient declined 09/ Perley Depression Scale Answer Date Recorded Perley Depression Scale Total 5 04/28/2023 The thought [...] Telephone Encounter - Chiquita Knight RN - 05/23/2023 3:00 PM EDT Pt is aware. Will have Magui schedule US for her next appt for MADELYN. * Telephone Encounter - Chrissy Peters RN - 05/20/2023 9:08 AM EDT Attempted to call patient. No answer, unable to leave VM due to mailbox full. * Telephone Encounter - Tiffanie Tan PA-C - 05/20/2023 8:53 AM EDT Please disregard previous message as I have received advice back from [facility] Re: Dr. Mcclain since then. Please inform her of ultrasound results. Normal growth. MADELYN is low, does not meet oligohydramnios criteria. [facility] recommended repeat MADELYN check with ultrasound in 1 week. I placed order so she could be scheduled for 05/26/2023. In regards to thyroid medication. [facility] did not see the need for [...] today. Also sent ask a doc to [facility] for further recommendations regarding timing of delivery and delivery location given thyroid issues and ultrasound findings. * Telephone Encounter - Chrissy Peters RN - 05/19/2023 1:15 PM EDT Received call from [facility] at [facility]. Patient had Growth US there today after visit. 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 Growth was a little less than 5%. Cynthia reports growth was okay. She wanted to let a provider know about the low MADELYN prior to the report coming back. Please advise. Batsheva patient today, Delma Ordered growth US. documented in this encounter Plan of Treatment Upcoming Encounters Date Type Department Care Team (Late st Contact Info) Description 05/28/2023 1:00 PM EDT Office Visit Gynecology/Obstetrics [facility] Moody [address] [place] [address] Delma Pacheco CRNP [address] [place] [address] [place], Non Stress Tests Yovany [address] [place] [address] 06/04/2023 1:45 PM EDT Office Visit Gynecology/Obstetrics Bethany Moody [address] [place] [address] Elva Duvall CRNP [address] [place] [address] [place], Non Stress Tests Yovany [address] [place] [address] Scheduled Orders Name Type Priority Associated Diagnoses [...] trimester documented in this encounter Care Teams Fee Clerk Relationship Specialty Start Date End Date Alice Marc MD [address] [place] [address] PCP - General Family Medicine 12/22/14 documented as of this encounter
--- OUTSIDE RECORDS SUMMARY | 2023-06-15 23:14 | External Medical Summary ---
Author Name Unknown Address Unknown Organization [id number]:[place] [place] [address] [facility] [place] [address] Laboratory Report Ordering Provider Test Date Status SHAHANABACKER 05/16/2023 08:49:58 Final Observation Date Value Abnormality Reference (Units ) Status WBC, Total 05/16/2023 08:49:58 12.18 Above high normal 4 .00-10.80 (K/uL) Final RBC 05/16/2023 08:49:58 3.80 3.85-5.15 (M/uL) Final Hemoglobin 05/16/2023 08:49:58 12.2 12.0-15.3 (g/dL) Final Anemia reflex testing trigge rs on a HGB < 12.0 for Females and HGB < 13.0 for Males in accordance with the WHO Anemia Guidelines
Anemia reflex testing triggers on a HGB < 12.0 for Females and HGB < 13.0 for Males in accordance with the WHO Anemia Guidelines HCT 05/16/2023 08:49:58 36.7 36.0-45.2 (%) Final MCV 05/16/2023 08:49:58 96.6 81.5-97.5 (fL) Final MCH 05/16/2023 08:49:58 32.1 27.0-34.0 (pg) Final MCHC 05/16/2023 08:49:58 33.2 32.0-36.0 (g/dL) Final RDW 05/16/2023 08:49:58 14.0 11.5-15.5 (%) Final Platelets 05/16/2023 08:49:58 192 140-400 (K /uL) Final MPV 05/16/2023 08:49:58 11.5 6.6-11.1 ( fL) Final Nucleated erythrocytes/100 leukocytes [Ratio] in Blood by Automated count 05/16/2023 08:49:58 0 <=0 (/100 WBCs) [facility] Performing Location [facility] [place] [address] [facility] [address]
--- OUTSIDE RECORDS SUMMARY | 2023-06-15 23:15 | External Medical Summary ---
Author Name Unknown Address Unknown Organization [id number][place] [place] [address] [place] [address] Laboratory Report Ordering Provider Test Date Status SABINA BALDERASMAGALI 03/20/2023 12:35:58 Final Observation Date Value Abnormality Reference (Units ) Status Iron 03/20/2023 12:35:58 73 33-151 (ug /dL) Final Iron-binding capacity 03/20/2023 12:35:58 409 250-425 (ug/dL) Final Transferrin Sat % 03/20/2023 12:35:58 18 15 -55 (%) Final Performing Location [facility] [place] [address] [place] [address]
--- OUTSIDE RECORDS SUMMARY | 2023-06-15 23:15 | External Medical Summary ---
Author Name Unknown Address Unknown Organization [id number]:LABORATORY [facility] [place] - [address] [place] [address] Laboratory Report Ordering Provider Test Date Status LATOYA BALDERAS 03/20/2023 12:35:58 Final Observation Date Value Abnormality Reference (Units ) Status WBC, Total 03/20/2023 12:35:58 11.70 Above high normal 4 .00-10.80 (K/uL) Final RBC 03/20/2023 12:35:58 3.54 3.85-5.15 (M/uL) Final Hemoglobin 03/20/2023 12:35:58 11.4 Below low normal 12 .0-15.3 (g/dL) Final Anemia reflex testing trigge rs on a HGB < 12.0 for Females and HGB < 13.0 for Males in accordance with the WHO Anemia Guidelines
Anemia reflex testing triggers on a HGB < 12.0 for Females and HGB < 13.0 for Males in accordance with the WHO Anemia Guidelines HCT 03/20/2023 12:35:58 34.7 Below low normal 36. 0-45.2 (%) Final MCV 03/20/2023 12:35:58 98.0 81.5-97.5 (fL) Final MCH 03/20/2023 12:35:58 32.2 27.0-34.0 (pg) Final MCHC 03/20/2023 12:35:58 32.9 32.0-36.0 (g/dL) Final RDW 03/20/2023 12:35:58 13.6 11.5-15.5 (%) Final Platelets 03/20/2023 12:35:58 201 140-400 (K /uL) Final MPV 03/20/2023 12:35:58 11.4 6.6-11.1 ( fL) Final Nucleated erythrocytes/100 leukocytes [Ratio] in Blood by Automated count 03/20/2023 12:35:58 0 <=0 (/100 WBCs) Final Performing Location LABORATORY [facility] [place] - [address] [facility] [address]
--- OUTSIDE RECORDS SUMMARY | 2023-06-15 23:15 | External Medical Summary ---
Author Name Unknown Address Unknown Organization [id number]:LABORATORY [facility] [place] - [address] [address] Laboratory Report Ordering Provider Test Date Status LATOYA BALDERAS 03/20/2023 12:35:58 Final Observation Date Value Abnormality Reference (Units ) Status TSH 03/20/2023 12:35:58 3.58 0.27-4.20 (uIU/mL) Final Performing Location LABORATORY [facility] - [address] [place] [address]
--- OUTSIDE RECORDS SUMMARY | 2023-06-15 23:15 | External Medical Summary ---
Author Name Unknown Address Unknown Organization [id number]:LAB[facility]ATORY [facility] [place] - [address] [facility] [place] [address] Laboratory Report Ordering Provider Test Date Status LATOYA BALDERAS 03/20/2023 12:35:58 Final Observation Date Value Abnormality Reference (Units ) Status SYNC LEUKOCYTES IN BLOOD BY AUTOMATED COUNT 03/20/2023 12:35:58 11.70 Above high normal 4.00-10.80 (K/uL) Final Segs 03/20/2023 12:35:58 72.4 40.0-75.0 (%) Final Lymphs % 03/20/2023 12:35:58 15.9 Below low normal 18.0-42.0 (%) Final Monos 03/20/2023 12:35:58 6.4 1.0-11.0 (%) Final Eosinophils 03/20/2023 12:35:58 1.6 0.0-6.0 (%) Final Basos 03/20/2023 12:35:58 0.7 0.0-2.0 (%) Final Immature Granulocyte, Percent 03/20/2023 12:35:58 3.0 Above high normal 0.0-2.0 (%) Final Absolute Segs 03/20/2023 12:35:58 8.47 Above high normal 1.80-7.70 (K/uL) Final Lymphs, absolute 03/20/2023 12:35:58 1.86 1.00-4.80 (K/ul) Final Monos, Abs 03/20/2023 12:35:58 0.75 0.00-1.10 (K/uL) Final Eos, Abs 03/20/2023 12:35:58 0.19 0.00-0.70 (K/uL) Final Basos, Abs 03/20/2023 12:35:58 0.08 0.00-0.20 (K/uL) Final Immature Granulocytes, Number 03/20/2023 12:35:58 0.35 Above high normal 0.00-0.20 (K/uL) Final Performing Location LAB[facility]ATORY [facility] [place] - [address] [facility] [address]
--- OUTSIDE RECORDS SUMMARY | 2023-06-15 23:15 | External Medical Summary | Summary of Care ---
Author Name Unknown Organization [facility] Address [address] [place] [address] Phone [phone] Care Team Providers Care Dowel Sticker Operator Name Role Phone Alice Marc MD Primary Care Provider Reason for Referral * Evaluate & Treat - Unlimited Visits (Within 10 days (routine)) - Pending Review Specialty Diagnoses / Procedures Referred By Alayna barkley Referred To Contact Obstetrics/Gynecology / Maternal Medicine Diagnoses Hypothyroidism affecting in third trimester Delma Pacheco CRNP [address] [place] [address] Referral ID Status Reason Start Date Expiration Date Visits Requested Visits Authorized [id number] Pending Review Specialty Services Required 04/03/[phone] Question Answer Referral Priority Within 10 days (routine) Has the patient had a viability scan? Yes Date performed 11/05/2022 Location performed Radiology Reason for referral Maternal medical condition Please provide additional details hypothyroid on levoxyl, dose adjustment in 3rd trimester. pt unable to travel for u/s, will get growth locally Where should this appointment be scheduled? [facility] Comments /Para: LMP: No LMP recorded (lmp unknown). Patient is . CHITRA: 06/08/2023, by Ultrasound Pre-Gravid BMI: 20.38 Reason for Visit * Reason Comments Return Visit Encounter Details Date Type Department Care Team (Late st Contact Info) Description 04/03/2023 1:15 PM EST Office Visit Gynecology/Obstetric s [facility] Moody [address] [place] [address] Delma Pacheco CRNP [address] [place] [address] Normal in third trimester*; Hypothyroidism affecting in third trimester; History of gestational diabetes; Tobacco smoking affecting in third trimester; Depression complicating , antepartum; Antepartum anemia complicating Allergies No known active allergiesdocumented as of this encounter (statuses as of 04/03/2023) Medications Medication Sig Dispensed Refills Start Date [...] other meds). 30 Tablet 3 04/03/2023 Active Levothyroxine Sodium 88 MCG Oral Tablet (Levoxyl) Take 1 Tablet by mouth in the morning. (at least 30 min prior to breakfast or other meds). 90 Tablet 2 03/05/2023 4 Discontinued documented as of this encounter (statuses as of 04/03/2023) Active Problems Problem Noted Date Diagnosed Date Normal 11/05/2022 Hypothyroidism affecting 11/05/2022 Overview: TSH Results: [...] be handled at the discretion of the heater operator. 88 mcg levothyroxine started at 9 wks Increased to 100 mcg at 30w4d; referral to [facility] sent History of gestational diabetes 11/05/2022 Overview: Early GTT normal Tobacco use 11/05/2022 Tobacco smoking complicating 3 Depression complicating , antepartum Overview: zoloft Acquired hypothyroidism 08/05/2019 Overview: Pt states she hasn't been on meds for 2 years due to insurance. TSH 5.29, ordered synthroid 25mcg to restart 08/11/19 TSH Target Levels in per [facility] 0-14 weeks: 0.03-2.5 15-28 weeks: 0.03-3.0 28-40 weeks: 0.13-3.0 TSH(uIU/mL) Bianka Dt/Tm Resulted Value Status 11/25/19 5:02P 11/26/19 3.30 FINAL 08/10/19 10:31A 08/11/19 5.29* FINAL 06/23/17 2:53P 06/23/17 2.75 FINAL Advanced directives, counseling/discussion 06/14 Overview: No, Advance Directive brochure offered, patient declined. Estimated Date of Delivery Comme nts Yes 06/08/2023 Based on Ultraso und documented as of this encounter (statuses as of 04/03/2023) Resolved Problems Problem Noted Date Diagnosed Date [...] or hemolytic disease of the . Multiple TOBACCO HANGER's on anatomy sono- resolved on f/u anatomy sono Tobacco use in 03/09/201411/2014 Overview: Smoking 10cig/day at NOB visit 08/03/14 @30wks: smoking 2cig/day INFORMATION 03/09/2014 05/07/2017 Overview: FOB and fob's brother with aortic stenosis echo (pt desires this to be in [place]) O + bloodtype; + antibody screen; direct Randal negative Patient has a history of nonspecific reactivity. 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 Per [facility] report: Patient [...] as of this encounter (statuses as of 04/03/2023) Immunizations Name Administration Dates Next Due TDAP (age 10 and older)(Boostrix) 11/25/2019, TDAP (age 11 and older)(Adacel) 11/20/2005 documented as of this encounter Social History Tobacco Use Types Packs/Day Years Used Date Smoking Tobacco: Every Day Cigarettes 0.5 13.1 Started: 02/10/2010 Smokeless Tobacco: Never Alcohol Use [...] have money to get more. Patient declined [place] Depression Scale Answer Date Recorded [place] Depression Scale Total 4 03/20/2023 The thought [...] Reading Time Taken Comments Blood Pressure 108/62 04/03/2023 12:53 PM EST Pulse - - Temperature - - Respiratory Rate - - Oxygen Saturation - - Inhaled Oxygen Concentration - - Weight 71.2 kg (157 lb) 04/03/2023 12:53 PM EST Height - - Body Mass Index 23.88 03/20/2023 11:33 AM EST documented in this encounter Progress Notes * Delma Pacheco CRNP - 04/03/2023 1:04 PM EST 30w4d Feeling tired but otherwise ok. Good movement. No ctx/bleeding. She is asking about her 28 wk lab results, has had trouble logging onto her chart. Notable for anemia and TSH of 3.5. Recommend increased levothyroxine dose and adding iron supplementation. DiscussedMFM referral due to change in thyroid medication in 3rd trimester; she is agreeable to a consult but states she cannot travel for imaging. She is agreeable to scheduling a growth ultrasound locally. Will plan lab recheck in 4 weeks. 2 week return YONI Soliz documented in this encounter Plan of Treatment Scheduled Orders Name Type Priority Associated Diagnoses Orde r Schedule MFM US MATERNAL 1ST FETUS Medical Imaging Routine Hypothyroidism affecting in third trimester Expected: 04/03/2023, Expires: 05/01/2024 US PREG FOLLOW-UP EACH FETUS Medical Imaging Routine Hypothyroidism affecting in third trimester Expected: 04/03/2023 (Approximate), Expires: 05/01/2024 Scheduled Referrals Name Type Priority Associated Diagnoses Orde r Schedule MATERNAL MEDICINE REFERRAL OP Referral Within 10 days (routine) Hypothyroidism affecting in third trimester Ordered: 04/03/2023 Health Maintenance Due Date Last Done Comments Pneumococcal Vaccine: Pediatrics (0 to 5 Years) and At-Risk Patients (6 to 64 Years) (1 of 2 - PCV) 11/09/1999 Depression Screening 06/19/2018 06/19/2017 COVID-19 Vaccine ( - 2022- season) 2022 Influenza Vaccine (FLU shot) (#1) 2022 TSH 03/20/2024 03/20/2023, 02/09/2023, 12/03/2022, Additional history exists Pap Smear 11/05/2025 [...] as of this encounter Visit Diagnoses Diagnosis Normal in third trimester- Primary Hypothyroidism affecting in third trimester History of gestational diabetes Personal history of gestational diabetes Tobacco smoking affecting in third trimester Depression complicating , antepartum Mental disorders of mother, antepartum Antepartum anemia complicating Anemia, antepartum documented in this encounter Care Teams Dowel Sticker Operator Relationship Specialty Start Date End Date Alice Marc MD [address] [place] [address] PCP - General Family Medicine 12/22/14 documented as of this encounter
--- OUTSIDE RECORDS SUMMARY | 2023-06-15 23:15 | External Medical Summary ---
Author Name Unknown Address Unknown Organization K01:LABORATORY [facility] - [address] [place] [address] Laboratory Report Ordering Provider Test Date Status LATOYA BALDERAS 03/20/2023 12:35:58 Final Observation Date Value Abnormality Reference (Units ) Status TSH 03/20/2023 12:35:58 3.57 0.27-4.20 (uIU/mL) Final Performing Location LABORATORY [facility] - [address] [place] [address]
--- OUTSIDE RECORDS SUMMARY | 2023-06-15 23:15 | External Medical Summary | Summary of Care ---
Author Name Unknown Organization [facility] Address [address] [facility] [address] Phone [phone] Care Team Providers Care Health Outcomes Liaison Name Role Phone Alice Marc MD Primary Care Provider Reason for Visit * Reason Comments Return Visit Encounter Details Date Type Department Care Team (Late st Contact Info) Description 03/20/2023 11:45 AM EST Office Visit Gynecology/Obstetric s [facility] [address] [place] [address] Elva Duvall CRNP [address] [place] [phone] Normal in third trimester*; Hypothyroidism affecting in third trimester; History of gestational diabetes; Tobacco smoking affecting , antepartum; Depression complicating , antepartum Allergies No known active allergiesdocumented as of this encounter (statuses as of 03/20/2023) Medications Medication Sig Dispensed Refills Start Date End Date Status Sertraline HCl 50 MG Oral Tablet (Zoloft) Take 1 Tablet by mouth in the morning. 0 09/22/2020 Active Complete Oral Capsule Therapy Pack Take by mouth. 0 Active Levothyroxine Sodium 88 MCG Oral Tablet (Levoxyl) Take 1 Tablet by mouth in the morning. (at least 30 min prior to breakfast or other meds). 90 Tablet 2 03/05/2023 Active documented as of this encounter (statuses as of 03/20/2023) Active Problems Problem Noted Date Diagnosed Date Normal 11/05/2022 Hypothyroidism affecting 11/05/2022 Overview: TSH Results: Lab Results Component Value Date/Time TSH - [facility] 4.33 (H) 11/05/2022 10:14 AM TSH - [facility] 4.98 (H) 03/13/2022 10:59 AM TSH - [facility] 2.69 03/07/2021 03:29 PM TSH - [facility] 5.98 (H) 01/19/2020 12:25 [...] be handled at the discretion of the backpackers manager. 88 mcg levothyroxine started at 9 wks - recheck 13 wks History of gestational diabetes 11/05/2022 Overview: Early [...] as of this encounter (statuses as of 03/20/2023) Resolved Problems Problem Noted Date Diagnosed Date [...] or hemolytic disease of the . Multiple ASSOCIATE PROFESSOR OF [employer] MUSIC's on anatomy sono- resolved on f/u anatomy sono Tobacco use in 03/09/201411/2014 Overview: Smoking 10cig/day at NOB visit 08/03/14 @30wks: smoking 2cig/day INFORMATION 03/09/2014 05/07/2017 Overview: FOB and fob's brother with aortic stenosis echo (pt desires this to be in [place]) O + bloodtype; + antibody screen; direct Randal negative Patient has a history of nonspecific reactivity. 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 Per [facility] report: Patient [...] as of this encounter (statuses as of 03/20/2023) Immunizations Name Administration Dates Next Due TDAP (age 10 and older)(Boostrix) 11/25/2019, TDAP (age 11 and older)(Adacel) 11/20/2005 documented as of this encounter Social History Tobacco Use Types Packs/Day Years Used Date Smoking Tobacco: Every Day Cigarettes 0.5 3 Started: 02/10/2010 Smokeless Tobacco: Never Alcohol Use Standard Drinks/Week Comments Not Currently 0 (1 standard drink = 0.6 oz pur e alcohol) PHQ-2 Answer Date Recorded PHQ-2 Score 0 12/14/2017 Hunger Vital Sign Answer Date Recorded Within the past 12 months, y ou worried that your food would run out before you got the money to buy more. Patient refused Within the past 12 months, t he food you bought just didn't last and you didn't have money to get more. Patient refused [place] Depression Scale Answer Date Recorded [place] Depression Scale Total 4 03/20/2023 The thought [...] Sign Reading Time Taken Comments Blood Pressure 108/60 03/20/2023 11:33 AM EST Pulse - - Temperature - - Respiratory Rate - - Oxygen Saturation - - Inhaled Oxygen Concentration - - Weight 71.7 kg (158 lb) 03/20/2023 11:33 AM EST Height 172.7 cm (5' 7.99") 03/20/2023 11:[address] Body Mass Index 24.03 03/20/2023 11:33 AM EST documented in this encounter Progress Notes * Elva Duvall CRNP - 03/20/2023 12:01 PM EST 28w4d Complaints: none Feeling well overall. Good FM. No contractions, bleeding, or LOF. Glucola today. Declines TDAP. YONI Ibanez documented in this encounter Nursing Notes * Seema Álvarez LPN - 03/20/2023 11:40 AM EST 28w4d Denies concerns. Completing 28 week labs today, declines tdap. documented in this encounter Plan of Treatment Health Maintenance Due Date Last Done Comments COVID-19 Vaccine (#1) 05/08/1994 Pneumococcal Vaccine: Pediatrics (0 to 5 Years) and At-Risk Patients (6 to 64 Years) (1 - PCV) 11/09/1999 Depression Screening 06/19/2018 06/19/2017 Influenza Vaccine (FLU shot) (#1) 2022 TSH 12/04/2023 12/03/2022, 10/12, 03/13/2022, Additional history exists Pap Smear 11/05/2025 11/05/2022, [...] history of gestational diabetes Tobacco smoking affecting , antepartum Depression complicating , antepartum Mental disorders of mother, antepartum documented in this encounter Care Teams Health Outcomes Liaison Relationship Specialty Start Date End Date Alice Marc MD [address] [place] [address] PCP - General Family Medicine 12/22/14 documented as of this encounter
--- OUTSIDE RECORDS SUMMARY | 2023-06-15 23:15 | External Medical Summary | Summary of Care ---
Author Name Unknown Organization [facility] Address [address] [place] [address] Phone [phone] Care Team Providers Care Rental Agent Name Role Phone Alice Marc MD Primary Care Provider Reason for Visit * Reason Comments Outpatient Testing Encounter Details Date Type Department Care Team (Late st Contact Info) Description 03/20/2023 11:30 AM EST Laboratory Laboratory, [facility] [address] [facility] [place] [phone] [facility] [address] [facility] [address] Normal in second trimester; Hypothyroidism affecting in second trimester Allergies No known active allergiesdocumented as of [...] Results Component Value Date/Time TSH - [facility] 4.33 (H) 11/05/2022 10:14 AM TSH - [...] be handled at the discretion of the electronics manufacturer. 88 mcg levothyroxine started at 9 wks [...] any current needs or questions 01/11/2020 Nadege Vleasquez RN 01/11/2020 Hx of gestational diabetes i [...] hemolytic disease of the . Multiple MANAGER MALL's on anatomy sono- resolved on f/u anatomy sono Tobacco use in 03/09/201411/2014 Overview: Smoking 10cig/day at NOB visit 08/03/14 @30wks: smoking 2cig/day INFORMATION 03/09/2014 05/07/2017 Overview: FOB and fob's brother with aortic stenosis echo (pt desires this to be in [place]) O + bloodtype; + antibody screen; direct Randal negative Patient has a history of nonspecific reactivity. However current workup by the [place] reveals Anti SdA. Per [facility] report: Patient [...] have money to get more. Patient refused [place] Depression Scale Answer Date Recorded [place] Depression Scale Total 4 03/20/2023 The thought [...] Description 04/03/2023 1:15 PM EST Office Visit Gynecology/Obstetrics [facility] [address] [place] [address] Delma Pacheco CRNP [address] [place] [address] Pending Results Name Type Priority Associated Diagnoses Date /Time 50-G GESTATIONAL GLUCOSE, 1 HOUR Lab Routine Normal in second trimester 03/20/2023 12:35 PM EST CBC WITH WBC DIFFERENTIAL AND ANEMIA REFLEX WORKUP Lab Routine Normal in second trimester 03/20/2023 12:35 PM EST SYPHILIS ANTIBODY SCREEN WITH REFLEX TO RPR Lab Routine Normal in second trimester 03/20/2023 12:35 PM EST TSH WITH FREE T4 IF INDICATED Lab Routine Normal in second trimester Hypothyroidism affecting in second trimester 03/20/2023 12:35 PM EST ANEMIA CBC Lab Routine Normal in second trimester 03/20/2023 12:35 PM EST DIFFERENTIAL, AUTOMATED Lab Routine Normal in second trimester 03/20/2023 12:35 PM EST ANEMIA REFLEX CHEMISTRY HOLD Lab Routine Normal in second trimester 03/20/2023 12:35 PM EST SYPHILIS ANTIBODY SCREEN Lab Routine Normal in second trimester 03/20/2023 12:35 PM EST Health Maintenance Due Date Last Done Comments [...] this encounter Visit Diagnoses Diagnosis Normal in second trimester Hypothyroidism affecting in second trimester documented in this encounter Care Teams Rental Agent Relationship Specialty Start Date End Date Alice Marc MD [address] [place] [address] PCP - General Family Medicine 12/22/14 documented as of this encounter
--- OUTSIDE RECORDS SUMMARY | 2023-06-15 23:15 | External Medical Summary ---
Author Name Unknown Address Unknown Organization [id number]:LABORATORY [facility] [place] - [address] [place] [address] Laboratory Report Ordering Provider Test Date Status LATOYA BALDERAS 03/20/2023 12:35:58 Final Observation Date Value Abnormality Reference (Units ) Status Vitamin B12 03/20/2023 12:35:58 [id number] (pg/mL) Final Performing Location LABORATORY [facility] - [address] [place] [address]
--- OUTSIDE RECORDS SUMMARY | 2023-06-15 23:15 | External Medical Summary ---
Author Name Unknown Address Unknown Organization [id number]:[place] [place] [address] [place] [address] Laboratory Report Ordering Provider Test Date Status LATOYA BALDERAS 03/20/2023 12:35:58 Final Observation Date Value Abnormality Reference (Units ) Status Ferritin 03/20/2023 12:35:58 12 Below low normal 13- 150 (ng/mL) Final Performing Location LABORATORY [facility] - [address] [place] [address]
--- OUTSIDE RECORDS SUMMARY | 2023-06-15 23:15 | External Medical Summary ---
Author Name Unknown Address Unknown Organization [id number]:[place] [place] [address] [place] [address] [place] [address] Laboratory Report Ordering Provider Test Date Status LATOYA BALDERAS 03/20/2023 12:35:58 Final Observation Date Value Abnormality Reference (Units ) Status Treponema pallidum Ab [Presence] in Serum by Immunoassay 03/20/2023 12:35:58 Nonreactive Nonreactive Final No serologic evidence of syp hilis. No additional testing clinicially indicated at this time. Consider repeat testing in 2-4 weeks if acute or primary syphilis is suspected. Performing Location [facility] [place] [address] [place] [address]
--- OUTSIDE RECORDS SUMMARY | 2023-06-15 23:15 | External Medical Summary ---
Author Name Unknown Address Unknown Organization K01:LABORATORY [facility] [place] - [address] [place] [address] Laboratory Report Ordering Provider Test Date Status LATOYA BALDERAS 03/20/2023 12:35:58 Final Observation Date Value Abnormality Reference (Units ) Status Folic Acid 03/20/2023 12:35:58 5.5 >4.5 (ng/ mL) Final Performing Location LABORATORY [facility] - [address] [place] [address]
--- OUTSIDE RECORDS SUMMARY | 2023-06-15 23:15 | External Medical Summary ---
Author Name Unknown Address Unknown Organization K01:LABORATORY [facility] [place] - [facility] [address] [facility] [place] [address] Laboratory Report Ordering Provider Test Date Status LATOYA BALDERAS 03/20/2023 12:35:58 Final Observation Date Value Abnormality Reference (Units ) Status Retic, % (auto) 03/20/2023 12:35:58 2.22 Above high normal 0.80-1.90 (%) Final Reticulocytes, Absolute 03/20/2023 12:35:58 78.4 31.3-100.1 (K/uL) Final Reticulocyte fraction, immature 03/20/2023 12:35:58 26.1 Above high normal 2.5-20.6 (%) Final Reticulocyte HGB 03/20/2023 12:35:58 34.7 29.7-37.4 (pg) Final Performing Location LABORATORY [facility] [place] - [facility] [address] [place] [address]
--- OUTSIDE RECORDS SUMMARY | 2023-06-15 23:15 | External Medical Summary | Summary of Care ---
Author Name Unknown Organization [facility] Address [address] [facility] [place] [address] Phone [phone] Care Team Providers Care Drawer In Hand Name Role Phone Alice Marc MD Primary Care Provider Reason for Visit * Reason Comments Return Visit Encounter Details Date Type Department Care Team (Late st Contact Info) Description 01/22/2023 10:45 AM EST Office Visit Gynecology/Obstetric s [facility] [address] [place] [address] Elva Duvall CRNP [address] [place] [address] Normal in second trimester*; Hypothyroidism affecting in second trimester; History of gestational diabetes; Tobacco smoking affecting in second trimester; Depression complicating , antepartum Allergies No known active allergiesdocumented as of this encounter (statuses as of 01/22/2023) Medications Medication Sig Dispensed Refills Start Date [...] breakfast or other meds). 90 Tablet 2 11/06/2022 Active documented as of this encounter (statuses as of 01/22/2023) Active Problems Problem Noted Date Diagnosed Date Normal 11/05/2022 Hypothyroidism affecting 11/05/2022 Overview: TSH Results: Lab Results Component Value Date/Time TSH - [facility] 4.33 (H) 11/05/2022 10:14 AM TSH - [...] be handled at the discretion of the cornetist. 88 mcg levothyroxine started at 9 wks [...] as of this encounter (statuses as of 01/22/2023) Resolved Problems Problem Noted Date Diagnosed Date [...] or hemolytic disease of the . Multiple LOCOMOTIVE OPERATOR HELPER's on anatomy sono- resolved on f/u anatomy sono Tobacco use in 03/09/201411/2014 Overview: Smoking 10cig/day at NOB visit 08/03/14 @30wks: smoking 2cig/day INFORMATION 03/09/2014 05/07/2017 Overview: FOB and fob's brother with aortic stenosis echo (pt desires this to be in [place]) O + bloodtype; + antibody screen; direct Randal negative Patient has a history of nonspecific reactivity. However current workup by the [place] reveals Anti SdA. Per [facility]C report: Patient [...] as of this encounter (statuses as of 01/22/2023) Immunizations Name Administration Dates Next Due TDAP [...] have money to get more. Patient refused [place] Depression Scale Answer Date Recorded [place] Depression Scale Total 8 11/05/2022 The thought of harming myself has occurred to me . Never 11/05/2022 Estimated Date of Delivery Comme nts Yes [...] Sign Reading Time Taken Comments Blood Pressure 106/68 01/22/2023 9:40 AM EST Pulse - - Temperature - - Respiratory Rate - - Oxygen Saturation - - Inhaled Oxygen Concentration - - Weight 66.3 kg (146 lb 3.2 oz) 01/22/2023 9:40 A M EST Height 172.7 cm (5' 7.99") 01/22/2023 9:40 AM ES T Body Mass Index 22.24 01/22/2023 9:40 AM EST documented in this encounter Progress Notes * Elva Duvall CRNP - 01/22/2023 10:17 AM EST 20w3d No concerns. Baby is active. No bleeding. Anatomy u/s today, formal report pending. YONI Ibanez documented in this encounter Nursing Notes * Seema Álvarez LPN - 01/22/2023 10:12 AM EST 20w3d Denies concerns. Anatomy scan done today prior to appointment. documented in this encounter Plan of Treatment Upcoming Encounters Date Type Department Care Team (Late st Contact Info) Description 02/19/2023 9:30 AM EST [facility] [address] [place] [address] Elva Duvall CRNP [address] [place] [address] Health Maintenance Due Date Last Done Comments [...] encounter Visit Diagnoses Diagnosis Normal in second trimester- Primary Hypothyroidism affecting in second trimester History of gestational diabetes Personal history of gestational diabetes Tobacco smoking affecting in second trimester Depression complicating , antepartum Mental disorders of mother, antepartum documented in this encounter Care Teams Drawer In Hand Relationship Specialty Start Date End Date Alice Marc MD [address] [place] [address] PCP - General Family Medicine 12/22/14 documented as of this encounter
--- OUTSIDE RECORDS SUMMARY | 2023-06-15 23:15 | External Medical Summary | Summary of Care ---
Author Name Unknown Organization [facility] Address [address] [facility] [place] [address] Phone [phone] Care Team Providers Care Federal Appellate Clerk Name Role Phone Alice Marc MD Primary Care Provider Reason for Visit * Reason Comments Return Visit Encounter Details Date Type Department Care Team (Late st Contact Info) Description 03/05/2023 10:30 AM EST Office Visit Gynecology/Obstetric s [facility] [address] [place] [address] Elva Duvall CRNP [address] [place] [address] Normal in second trimester*; Hypothyroidism affecting in second trimester; History of gestational diabetes; Tobacco smoking affecting , antepartum; Depression complicating , antepartum Allergies No known active allergiesdocumented as of this encounter (statuses as of 03/05/2023) Medications Medication Sig Dispensed Refills Start Date [...] other meds). 90 Tablet 2 03/05/2023 Active Levothyroxine Sodium 88 MCG Oral Tablet (Levoxyl) Take 1 Tablet by mouth in the morning. (at least 30 min prior to breakfast or other meds). 90 Tablet 2 11/06/2022 03/05/2023 Discontinued (Refill) documented as of this encounter (statuses as of 03/05/2023) Active Problems Problem Noted Date Diagnosed Date [...] be handled at the discretion of the merchandise manager. 88 mcg levothyroxine started at 9 [...] as of this encounter (statuses as of 03/05/2023) Resolved Problems Problem Noted Date Diagnosed Date [...] or hemolytic disease of the . Multiple FACTORY CLERK's on anatomy sono- resolved on f/u anatomy sono Tobacco use in 03/09/201411/2014 Overview: Smoking 10cig/day at NOB visit 08/03/14 @30wks: smoking 2cig/day INFORMATION 03/09/2014 05/07/2017 Overview: FOB and fob's brother with aortic stenosis echo (pt desires this to be in [place]) O + bloodtype; + antibody screen; direct Randal negative Patient has a history of nonspecific reactivity. 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 Per [facility]C report: Patient [...] as of this encounter (statuses as of 03/05/2023) Immunizations Name Administration Dates Next Due TDAP [...] have money to get more. Patient refused [place] Depression Scale Answer Date Recorded [place] Depression Scale Total 8 11/05/2022 The thought [...] Sign Reading Time Taken Comments Blood Pressure 102/60 03/05/2023 10:28 AM EST Pulse - - Temperature - - Respiratory Rate - - Oxygen Saturation - - Inhaled Oxygen Concentration - - Weight 69.9 kg (154 lb) 03/05/2023 10:28 AM EST Height 172.7 cm (5' 7.99") 03/05/2023 10:28 AM Leoncio STEVEN Body Mass Index 23.42 03/05/2023 10:28 AM EST documented in this encounter Progress Notes * Elva Duvall CRNP - 03/05/2023 10:44 AM EST 26w3d C/o heartburn, reviewed meds safe in . Ran out of thyroid medicine a few days ago, needs refill. Due for recheck of TSH, will draw with glucola at next visit. Baby is active. No contractions or bleeding. YONI Ibanez * Natalya Mandujano LPN - 03/05/2023 10:28 AM EST 26w3d Acid reflux documented in this encounter Plan of Treatment Upcoming Encounters Date Type Department Care Team (Late st Contact Info) Description 03/20/2023 11:30 AM EST [facility] [address] [place] [phone] [facility] [address] [place] [address] 03/20/2023 11:45 AM EST Office Visit Gynecology/Obstetrics [facility] [address] [place] [address] Elva Duvall CRNP [address] [place] [address] Scheduled Orders Name Type Priority Associated Diagnoses Orde r Schedule 50-G GESTATIONAL GLUCOSE, 1 HOUR Lab Routine Normal in second trimester Expected: 03/12/2023 (Approximate), Expires: 03/05/2024 CBC WITH WBC DIFFERENTIAL AND ANEMIA REFLEX WORKUP Lab Routine Normal in second trimester Expected: 03/12/2023 (Approximate), Expires: 03/05/2024 SYPHILIS ANTIBODY SCREEN WITH REFLEX TO RPR Lab Routine Normal in second trimester Expected: 03/12/2023 (Approximate), Expires: 03/05/2024 TSH WITH FREE T4 IF INDICATED Lab Routine Normal in second trimester Hypothyroidism affecting in second trimester Expected: 04/05/2023 (Approximate), Expires: 03/05/2024 Health Maintenance Due Date Last Done Comments [...] antepartum documented in this encounter Care Teams Federal Appellate Clerk Relationship Specialty Start Date End Date Alice Marc MD [address] [place] [id number] PCP - General Family Medicine 12/22/14 documented as of this encounter
--- OUTSIDE RECORDS SUMMARY | 2023-06-15 23:15 | External Medical Summary ---
Author Name Unknown Address Unknown Organization [id number] [address] [place] [address] Laboratory Report Ordering Provider Test Date Status LATOYA BALDERAS 03/20/2023 12:35:58 Final Observation Date Value Abnormality Reference (Units ) Status Glucose [Moles/volume] in Serum or Plasma --1 hour post 50 g glucose PO 03/20/2023 12:35:58 109 70-129 (mg/dL) Final Performing Location LABORATORY [facility] - [address] [place] [address]
--- OUTSIDE RECORDS SUMMARY | 2023-06-15 23:16 | External Medical Summary | Summary of Care ---
Author Name Unknown Organization [facility] Address [address] [place] [address] Phone [phone] Care Team Providers Care Information Clerk Name Role Phone Alice Marc MD Primary Care Provider Reason for Visit * Reason Comments Return Visit Encounter Details Date Type Department Care Team (Late st Contact Info) Description 12/31/2022 1:30 PM EST Office Visit Gynecology/Obstetric s [facility] [address] [place] [address] Elva Duvall CRNP [address] [place] [address] Normal in second trimester*; Hypothyroidism affecting in second trimester; History of gestational diabetes; Tobacco smoking affecting , antepartum; Depression complicating , antepartum Allergies No known active allergiesdocumented as of this encounter (statuses as of 12/31/2022) Medications Medication Sig Dispensed Refills Start Date [...] as of this encounter (statuses as of 12/31/2022) Active Problems Problem Noted Date Diagnosed Date Normal 11/05/2022 Hypothyroidism affecting 11/05/2022 Overview: TSH Results: Lab Results Component Value Date/Time TSH - [facility] 4.33 (H) 11/05/2022 10:14 AM TSH [...] be handled at the discretion of the boat camp operator. 88 mcg levothyroxine started at 9 [...] as of this encounter (statuses as of 12/31/2022) Resolved Problems Problem Noted Date Diagnosed Date [...] or hemolytic disease of the . Multiple FINANCE CONSULTANT's on anatomy sono- resolved on f/u anatomy sono Tobacco use in 03/09/201411/2014 Overview: Smoking 10cig/day at NOB visit 08/03/14 @30wks: smoking 2cig/day INFORMATION 03/09/2014 05/07/2017 Overview: FOB and fob's brother with aortic stenosis echo (pt desires this to be in [place]) O + bloodtype; + antibody screen; direct Randal negative Patient has a history of nonspecific reactivity. However current workup by the [place] reveals Anti SdA. Per [facility] report: Patient [...] as of this encounter (statuses as of 12/31/2022) Immunizations Name Administration Dates Next Due TDAP [...] have money to get more. Patient refused [place] Depression Scale Answer Date Recorded [place] Depression Scale Total 8 11/05/2022 The thought [...] Sign Reading Time Taken Comments Blood Pressure 106/60 12/31/2022 1:39 PM EST Pulse - - Temperature - - Respiratory Rate - - Oxygen Saturation - - Inhaled Oxygen Concentration - - Weight 64.6 kg (142 lb 6.4 oz) 12/31/2022 1:39 P M EST Height 172.7 cm (5' 7.99") 12/31/2022 1:39 PM ES T Body Mass Index 21.66 12/31/2022 1:39 PM EST documented in this encounter Progress Notes * Elva Duvall CRNP - 12/31/2022 1:55 PM EST 17w2d Complaints: none Feeling much better. No longer with n/v. +FM. No contractions, bleeding, or LOF. Declines MSAFP. Low risk Qnatal. Anatomy u/s with next visit. YONI Ibanez documented in this encounter Nursing Notes * Carlene Rangel LPN - 12/31/2022 1:43 PM EST 17w2d Pt denies any concerns, not interested in msafp documented in this encounter Plan of Treatment Upcoming Encounters Date Type Department Care Team (Late st Contact Info) Description 01/22/2023 9:15 AM EST Imaging Radiology [facility] [address] [facility], [place] [address] [facility] [place] [address] 01/22/2023 10:45 AM EST Office Visit Gynecology/Obstetrics [facility] [address] [facility] [place] [address] Elva Duvall CRNP [address] [facility] [place] [address] Scheduled Orders Name Type Priority Associated Diagnoses Orde r Schedule US PREG SINGLE/1ST GEST, 14 WEEKS OR LATER Medical Imaging Routine Normal in second trimester Expected: 01/30/2023, Expires: 01/31/2024 Health Maintenance Due Date Last Done Comments [...] antepartum documented in this encounter Care Teams Information Clerk Relationship Specialty Start Date End Date Alice Marc MD [address] [place] [address] PCP - General Family Medicine 12/22/14 documented as of this encounter
[2023-06-17 03:25] LABS: Rapid Plasma Reagin Reactive (Nonreactive)
== END 2023-06-15 15:32 | disposition home or self-care (01) | DRG 807 ==
LOC: OPB 04:44 → 4S1 04:47 → 4E2 15:29